=== PATIENT | male | born 1955 | race American Indian/Alaskan Native ===

== ENCOUNTER 2018-11-18 09:43 | Inpatient (IN) | payer MEDICARE, OTHER ==
[2018-11-18] MEDS ORDERED: NACL 0.9% 1000 ML 1,000 ML IV ONE ×6 (10:49→15:15)
[2018-11-18] MEDS ORDERED: ZOFRAN IV ONE (10:49)
[2018-11-18] MEDS ORDERED: HumuLIN R IV ONE (10:49)
[2018-11-18 11:33] LABS: Basophils % (Auto) 0.3 % (0.0-1.8); Eosinophils % (Auto) 0.2 % (0.0-4.3); Hematocrit 50.2 % (35.5-45.6); Hemoglobin 16.4 gm/dl (11.8-15.2); Lymphocytes # (Auto) 0.9 K/mm3 (1.2-5.4); Lymphocytes % (Auto) 14.6 % (13.4-35.0); Mean Corpuscular HGB Conc 33 % (32-34); Mean Corpuscular Volume 100 fl (84-94); Monocytes # (Auto) 0.2 K/mm3 (0.0-0.8); Monocytes % (Auto) 3.6 % (0.0-7.3); Platelet Count 317 K/mm3 (140-440); Red Cell Distribution Width 14.3 % (13.2-15.2)
[2018-11-18 11:53] LABS: Creatine Kinase MB 2.7 ng/mL (0.0-4.0)
[2018-11-18 11:55] LABS: Alanine Aminotransferase 10 units/L (7-56); Albumin 4.1 g/dL (3.9-5); BUN/Creatinine Ratio 38; Blood Urea Nitrogen 76 mg/dL (9-20); Calcium 10.4 mg/dL (8.4-10.2); Hemolysis Index 2
[2018-11-18] MEDS ORDERED: D50W (25GM) Syringe IV PRN ×2 (12:11→17:46)
[2018-11-18] MEDS ORDERED: PROVENTIL IH ONE (12:12)
--- NOTE | 2018-11-18 12:22 | Emergency Department Report ---
- General Chief complaint: Hyperglycemia Stated complaint: HYPERGLYCEMIA/WEAKNESS Time Seen by Provider: 11/18/18 10:19 Source: EMS Mode of arrival: Stretcher Limitations: No Limitations - History of Present Illness Initial comments: 63-year-old male with a past medical history of diabetes on insulin, hypertension, and hyperlipidemia presents to the hospital with complaints of na usea and decreased appetite for the last 2 weeks. Patient had one episode of vomiting with attempted by mouth intake. Glucose has been running high at home the last 2 weeks. He only took his insulin one time this week. He has did not think that he needs to take insulin because he was not eating even though his sugar repeatedly ran high. Patient complains of generalized weakness and fatigue with increased urinary frequency. He denies current nausea vomiting, diarrhea, area, or fever. PMD: Smith - Related Data Home Medications Medication Instructions Recorded Confirmed Last Taken amLODIPine [Norvasc] 10 mg PO DAILY 08/10/15 11/18/18 11/15/18 AtorvaSTATin [Lipitor] 40 mg PO QHS 11/18/18 11/18/18 11/15/18 Carvedilol [Coreg] 25 mg PO BID 11/18/18 11/18/18 11/15/18 Gabapentin [Neurontin] 300 mg PO BID 11/18/18 11/18/18 11/15/18 Insulin NPH Human Isophane See Protocol RI Q 11/18/18 11/18/18 11/11/18 [HumuLIN N] Insulin Regular, Human [HumuLIN R] See Protocol SC 11/18/18 11/18/18 11/11/18 Lisinopril [Zestril TAB] 40 mg PO QDAY 11/18/18 11/18/18 11/15/18 Allergies Allergy/AdvReac Type Severity Reaction Status Date / Time No Known Allergies Allergy Verified 08/09/15 13:13 ED Review of Systems ROS: Stated complaint: HYPERGLYCEMIA/WEAKNESS Other details as noted in HPI Comment: All other systems reviewed and negative ED Past Medical Hx - Past Medical History Previous Medical History?: Yes Hx Hypertension: Yes Hx Diabetes: Yes Additional medical history: hyperlipidemia - Surgical History Past Surgical History?: No - Social History Smoking Status: Former Smoker Substance Use Type: None - Medications Home Medications: Home Medications Medication Instructions Recorded Confirmed Last Taken Type amLODIPine [Norvasc] 10 mg PO DAILY 08/10/15 11/18/18 11/15/18 History AtorvaSTATin [Lipitor] 40 mg PO QHS 11/18/18 11/18/18 11/15/18 History Carvedilol [Coreg] 25 mg PO BID 11/18/18 11/18/18 11/15/18 History Gabapentin [Neurontin] 300 mg PO BID 11/18/18 11/18/18 11/15/18 History Insulin NPH Human Isophane See Protocol RI Q 11/18/18 11/18/18 11/11/18 History [HumuLIN N] Insulin Regular, Human [HumuLIN R] See Protocol [facility] 11/18/18 11/18/18 11/11/18 History Lisinopril [Zestril TAB] 40 mg PO QDAY 11/18/18 11/18/18 11/15/18 History ED Physical Exam - General Limitations: No Limitations ED Course Vital Signs 11/18/18 11/18/18 11/18/18 07:17 07:30 07:46 Temperature Pulse Rate 82 79 82 Pulse Rate [ Anterior Bilateral Throughout] Respiratory 15 13 16 Rate Respiratory Rate [Anterior Bilateral Throughout] Blood Pressure 101/62 101/62 101/62 Blood Pressure [Left] O2 Sat by Pulse 99 99 100 Oximetry 11/18/18 11/18/18 11/18/18 08:00 08:16 08:30 Temperature Pulse Rate 74 76 80 Pulse Rate [ Anterior Bilateral Throughout] Respiratory 16 14 14 Rate Respiratory Rate [Anterior Bilateral Throughout] Blood Pressure 101/62 101/62 101/62 Blood Pressure [Left] O2 Sat by Pulse 99 100 100 Oximetry 11/18/18 11/18/18 11/18/18 08:46 10:01 10:14 Temperature 99.1 F Pulse Rate 84 110 H Pulse Rate [ Anterior Bilateral Throughout] Respiratory 16 16 Rate Respiratory Rate [Anterior Bilateral Throughout] Blood Pressure 101/62 128/75 128/84 Blood Pressure [Left] O2 Sat by Pulse 100 98 Oximetry 11/18/18 11/18/18 11/18/18 11:00 11:01 11:16 Temperature Pulse Rate 84 84 Pulse Rate [ Anterior Bilateral Throughout] Respiratory 16 14 Rate Respiratory Rate [Anterior Bilateral Throughout] Blood Pressure 142/77 128/84 Blood Pressure 142/77 [Left] O2 Sat by Pulse 100 Oximetry 11/18/18 11/18/1811/18/19 11:30 11:46 12:00 Temperature Pulse Rate 91 H 99 H 90 Pulse Rate [ Anterior Bilateral Throughout] Respiratory 10 L 20 10 L Rate Respiratory Rate [Anterior Bilateral Throughout] Blood Pressure 142/77 142/77 137/72 Blood Pressure [Left] O2 Sat by Pulse 96 83 L Oximetry 11/18/18 11/18/18 11/18/18 12:01 12:16 12:26 Temperature Pulse Rate 84 88 Pulse Rate [ 85 Anterior Bilateral Throughout] Respiratory 16 13 Rate Respiratory 12 Rate [Anterior Bilateral Throughout] Blood Pressure 137/72 Blood Pressure 137/72 [Left] O2 Sat by Pulse 100 99 Oximetry 11/18/18 11/18/18 11/18/18 12:30 12:46 13:00 Temperature Pulse Rate 86 81 89 Pulse Rate [ Anterior Bilateral Throughout] Respiratory 10 L 11 L 15 Rate Respiratory Rate [Anterior Bilateral Throughout] Blood Pressure 137/72 137/72 117/65 Blood Pressure [Left] O2 Sat by Pulse 98 97 Oximetry 11/18/18 13:08 Temperature Pulse Rate Pulse Rate [ 89 Anterior Bilateral Throughout] Respiratory Rate Respiratory 12 Rate [Anterior Bilateral Throughout] Blood Pressure Blood Pressure [Left] O2 Sat by Pulse Oximetry - Consultations Consultation #1: 11/18/18 12:48 case d/w Luis Mata, Approves admission here at [facility] Consultation #2: 11/18/18 12:48 case d/w DR Bryson hartmann, will consult ED Medical Decision Making - Lab Data Result diagrams: 11/18/18 11:03 11/18/18 18:29 Lab Results 11/18/18 11/18/18 11/18/18 Range/Units 11:01 11:03 11:03 WBC 5.9 (4.5-11.0) K/mm3 RBC 5.00 (3.65-5.03) M/mm3 Hgb 16.4 H (11.8-15.2) gm/dl Hct 50.2 H (35.5-45.6) % MCV 100 H (84-94) fl MCH 33 H (28-32) pg MCHC 33 (32-34) % RDW 14.3 (13.2-15.2) % Plt Count 317 (140-440) K/mm3 Lymph % (Auto) 14.6 (13.4-35.0) % Cotton % (Auto) 3.6 (0.0-7.3) % Eos % (Auto) 0.2 (0.0-4.3) % Baso % (Auto) 0.3 (0.0-1.8) % Lymph # 0.9 L (1.2-5.4) K/mm3 Cotton # 0.2 (0.0-0.8) K/mm3 Eos # 0.0 (0.0-0.4) K/mm3 Baso # 0.0 (0.0-0.1) K/mm3 Seg Neutrophils % 81.3 H (40.0-70.0) % Seg Neutrophils # 4.8 (1.8-7.7) K/mm3 VBG pH (7.320-7.420) Sodium 126 L (137-145) mmol/L Potassium 7.3 H* (3.6-5.0) mmol/L Chloride 79.4 L (98-107) mmol/L Carbon Dioxide 18 L (22-30) mmol/L Anion Gap 36 mmol/L BUN 76 H (9-20) mg/dL Creatinine 2.0 H (0.8-1.5) mg/dL Estimated GFR 41 ml/min BUN/Creatinine Ratio 38 % Glucose 718 H* (75-100) mg/dL POC Glucose 495 H (70-105) Calcium 10.4 H (8.4-10.2) mg/dL Phosphorus (2.5-4.5) mg/dL Magnesium (1.7-2.3) mg/dL Total Bilirubin 0.60 (0.1-1.2) mg/dL AST 16 (5-40) units/L ALT 10 (7-56) units/L Alkaline Phosphatase 202 H (35-129) units/L Total Creatine Kinase 170 (55-170) units/L CK-MB (CK-2) 2.7 (0.0-4.0) ng/mL CK-MB (CK-2) Rel Index 1.5 (0-4) Troponin T < 0.010 (0.00-0.029) ng/mL Total Protein 7.7 (6.3-8.2) g/dL Albumin 4.1 (3.9-5) g/dL Albumin/Globulin Ratio 1.1 % Lipase (13-60) units/L Urine Color (Yellow) Urine Turbidity (Clear) Urine pH (5.0-7.0) Ur Specific Sandwich (1.003-1.030) Urine Protein (Negative) mg/dL Urine Glucose (UA) (Negative) mg/dL Urine Ketones (Negative) mg/dL Urine Blood (Negative) Urine Nitrite (Negative) Urine Bilirubin (Negative) Urine Urobilinogen (<2.0) mg/dL Ur Leukocyte Esterase (Negative) Urine WBC (Auto) (0.0-6.0) /HPF Urine RBC (Auto) (0.0-6.0) /HPF U Epithel Cells (Auto) (0-13.0) /HPF Urine Sodium mmol/L Urine Potassium mmol/L 11/18/18 11/18/18 11/18/18 Range/Units 11:03 11:03 11:03 WBC (4.5-11.0) K/mm3 RBC (3.65-5.03) M/mm3 Hgb (11.8-15.2) gm/dl Hct (35.5-45.6) % MCV (84-94) fl MCH (28-32) pg MCHC (32-34) % RDW (13.2-15.2) % Plt Count (140-440) K/mm3 Lymph % (Auto) (13.4-35.0) % Cotton % (Auto) (0.0-7.3) % Eos % (Auto) (0.0-4.3) % Baso % (Auto) (0.0-1.8) % Lymph # (1.2-5.4) K/mm3 Cotton # (0.0-0.8) K/mm3 Eos # (0.0-0.4) K/mm3 Baso # (0.0-0.1) K/mm3 Seg Neutrophils % (40.0-70.0) % Seg Neutrophils # (1.8-7.7) K/mm3 VBG pH 7.229 L (7.320-7.420) Sodium (137-145) mmol/L Potassium (3.6-5.0) mmol/L Chloride (98-107) mmol/L Carbon Dioxide (22-30) mmol/L Anion Gap mmol/L BUN (9-20) mg/dL Creatinine (0.8-1.5) mg/dL Estimated GFR ml/min BUN/Creatinine Ratio % Glucose (75-100) mg/dL POC Glucose (70-105) Calcium (8.4-10.2) mg/dL Phosphorus 6.70 H (2.5-4.5) mg/dL Magnesium 3.20 H (1.7-2.3) mg/dL Total Bilirubin (0.1-1.2) mg/dL AST (5-40) units/L ALT (7-56) units/L Alkaline Phosphatase (35-129) units/L Total Creatine Kinase (55-170) units/L CK-MB (CK-2) (0.0-4.0) ng/mL CK-MB (CK-2) Rel Index (0-4) Troponin T (0.00-0.029) ng/mL Total Protein (6.3-8.2) g/dL Albumin (3.9-5) g/dL Albumin/Globulin Ratio % Lipase 38 (13-60) units/L Urine Color (Yellow) Urine Turbidity (Clear) Urine pH (5.0-7.0) Ur Specific Sandwich (1.003-1.030) Urine Protein (Negative) mg/dL Urine Glucose (UA) (Negative) mg/dL Urine Ketones (Negative) mg/dL Urine Blood (Negative) Urine Nitrite (Negative) Urine Bilirubin (Negative) Urine Urobilinogen (<2.0) mg/dL Ur Leukocyte Esterase (Negative) Urine WBC (Auto) (0.0-6.0) /HPF Urine RBC (Auto) (0.0-6.0) /HPF U Epithel Cells (Auto) (0-13.0) /HPF Urine Sodium mmol/L Urine Potassium mmol/L 11/18/18 11/18/18 Range/Units 11:59 Unknown WBC (4.5-11.0) K/mm3 RBC (3.65-5.03) M/mm3 Hgb (11.8-15.2) gm/dl Hct (35.5-45.6) % MCV (84-94) fl MCH (28-32) pg MCHC (32-34) % RDW (13.2-15.2) % Plt Count (140-440) K/mm3 Lymph % (Auto) (13.4-35.0) % Cotton % (Auto) (0.0-7.3) % Eos % (Auto) (0.0-4.3) % Baso % (Auto) (0.0-1.8) % Lymph # (1.2-5.4) K/mm3 Cotton # (0.0-0.8) K/mm3 Eos # (0.0-0.4) K/mm3 Baso # (0.0-0.1) K/mm3 Seg Neutrophils % (40.0-70.0) % Seg Neutrophils # (1.8-7.7) K/mm3 VBG pH (7.320-7.420) Sodium (137-145) mmol/L Potassium (3.6-5.0) mmol/L Chloride (98-107) mmol/L Carbon Dioxide (22-30) mmol/L Anion Gap mmol/L BUN (9-20) mg/dL Creatinine (0.8-1.5) mg/dL Estimated GFR ml/min BUN/Creatinine Ratio % Glucose (75-100) mg/dL POC Glucose (70-105) Calcium (8.4-10.2) mg/dL Phosphorus (2.5-4.5) mg/dL Magnesium (1.7-2.3) mg/dL Total Bilirubin (0.1-1.2) mg/dL AST (5-40) units/L ALT (7-56) units/L Alkaline Phosphatase (35-129) units/L Total Creatine Kinase (55-170) units/L CK-MB (CK-2) (0.0-4.0) ng/mL CK-MB (CK-2) Rel Index (0-4) Troponin T (0.00-0.029) ng/mL Total Protein (6.3-8.2) g/dL Albumin (3.9-5) g/dL Albumin/Globulin Ratio % Lipase (13-60) units/L Urine Color Straw (Yellow) Urine Turbidity Clear (Clear) Urine pH 6.0 (5.0-7.0) Ur Specific Sandwich 1.018 (1.003-1.030) Urine Protein <15 mg/dl (Negative) mg/dL Urine Glucose (UA) >=500 (Negative) mg/dL Urine Ketones 20 (Negative) mg/dL Urine Blood Sm (Negative) Urine Nitrite Neg (Negative) Urine Bilirubin Neg (Negative) Urine Urobilinogen < 2.0 (<2.0) mg/dL Ur Leukocyte Esterase Neg (Negative) Urine WBC (Auto) 1.0 (0.0-6.0) /HPF Urine RBC (Auto) 1.0 (0.0-6.0) /HPF U Epithel Cells (Auto) < 1.0 (0-13.0) /HPF Urine Sodium 31 mmol/L Urine Potassium 35.69 mmol/L - EKG Data -: EKG Interpreted by Me EKG shows normal: sinus rhythm, axis (qrs -80), QRS complexes (qrsd 91), ST-T waves (no stemi/ t inv) Rate: normal (91) - EKG Data When compared to previous EKG there are: no significant change - Differential Diagnosis DKA, sepsis, infection, uti, dehydration Critical Care Time: Yes Critical care time in (mins) excluding proc time.: 35 Critical care attestation.: If time is entered above; I have spent that time in minutes in the direct care of this critically ill patient, excluding procedure time. ED Disposition Clinical Impression: DKA (diabetic ketoacidoses), Acute renal failure, Hyperkalemia Disposition: DC-09 OP ADMIT IP TO THIS HOSP Is pt being admited?: Yes Condition: Stable Time of Disposition: 12:22 (DR SANTILLAN/HOSP)
[2018-11-18 12:24] LABS: Bilirubin,Urine NEG (Negative); Blood,Urine SM (Negative); Color,Urine Straw (Yellow); Protein,Urine <15 mg/dL mg/dL (Negative); Urobilinogen,Urine < 2.0 mg/dL (<2.0)
[2018-11-18] MEDS ORDERED: HumuLIN R 100 UNITS in NACL 0.9% 99 ML IV SCH ×2 (13:00→18:00)
[2018-11-18] MEDS: NACL 0.9% 1000 ML 1,000 ML IV SCH ×2 (14:00→14:32)
[2018-11-18 15:24] LABS: Calcium 9.4 mg/dL (8.4-10.2)
--- NOTE | 2018-11-18 15:28 | Consultation ---
History of Present Illness - Reason for Consult Consult date: 11/18/18 Hyperglycemia, electrolyte imbalance Requesting physician: LOUISE SANTILLAN - History of Present Illness 63 y/o male with known diabetes, poor historian admitted as DKA. Found to be hyponatremic, hypochloremic and in presumed acute renal failure. at bedside who provides a list of medications that include 2 short acting insulins but no long acting medications. patient also takes nasim inhibitor and statin and Neurontin. Past History Past Medical History: diabetes, hypertension, hyperlipidemia Social history: Family history: no significant family history Medications and Allergies Allergies Allergy/AdvReac Type Severity Reaction Status Date / Time No Known Allergies Allergy Verified 08/09/15 13:13 Home Medications Medication Instructions Recorded Confirmed Last Taken Type Insulin Detemir [Levemir Flextouch] 15 units SUB-Q BID 08/10/15 08/10/15 08/09/15 09:00 History Lisinopril/Hydrochlorothiazide 2 tab PO QDAY 08/10/15 08/10/15 08/09/15 09:00 History [Zestoretic 20-12.5 mg] Potassium Chloride [K-Dur] 2 tab PO DAILY 08/10/15 08/10/15 08/09/15 09:00 History amLODIPine [Norvasc] 10 mg PO DAILY 08/10/15 08/10/15 08/09/15 09:00 History oxyCODONE /ACETAMINOPHEN [Percocet 1 tab PO Q6HR PRN #24 tablet 08/11/15 Unknown Rx 5/325] Active Meds: Active Medications Dextrose (D50w (25gm) Syringe) 0 ml IV PRN PRN PRN Reason: Hypoglycemia Insulin Human Regular 100 (units/ Sodium Chloride) 100 mls @ 1 mls/hr IV TITR JAVON; Protocol Last Titration: 11/18/18 15:09 Dose: 8 units/hr, 8 mls/hr Documented by: Sodium Chloride (Nacl 0.9% 1000 Ml) 1,000 mls @ 125 mls/hr IV DIRECT JAVON Last Admin: 11/18/18 14:00 Dose: 125 mls/hr Documented by: Sodium Chloride (Nacl 0.9% 1000 Ml) 1,000 mls @ 999 mls/hr IV BOLUS ONE Stop: 11/18/18 16:15 Sodium Chloride (Nacl 0.9% 1000 Ml) 1,000 mls @ 999 mls/hr IV BOLUS ONE Stop: 11/18/18 16:15 Sodium Chloride (Nacl 0.9% 1000 Ml) 1,000 mls @ 999 mls/hr IV BOLUS ONE Stop: 11/18/18 16:15 Review of Systems All systems: negative Exam - Constitutional Vitals: Temp Pulse Resp BP Pulse Ox 99.1 F 99 H 16 110/62 97 11/18/18 10:01 11/18/18 14:00 11/18/18 14:00 11/18/18 14:00 11/18/18 14:00 General appearance: Present: no acute distress, disheveled, other (appears older than stated age) - EENT Eyes: Present: PERRL ENT: hearing intact, clear oral mucosa, poor dentition, edentulous, other (Gums are in poor condition) - Neck Neck: Present: supple - Respiratory Respiratory effort: normal Respiratory: bilateral: CTA - Cardiovascular Rhythm: regular (sinus tach) Heart Sounds: Present: S1 & S2 - Abdominal General gastrointestinal: Present: soft, non-tender, normal bowel sounds Male genitourinary: Present: deferred - Rectal Rectal Exam: deferred Results - Labs CBC & Chem 7: 11/18/18 11:03 11/18/18 11:03 Labs: Abnormal lab results 11/18/18 11/18/18 11/18/18 Range/Units 11:01 11:03 11:03 Hgb 16.4 H (11.8-15.2) gm/dl Hct 50.2 H (35.5-45.6) % MCV 100 H (84-94) fl MCH 33 H (28-32) pg Lymph # 0.9 L (1.2-5.4) K/mm3 Seg Neutrophils % 81.3 H (40.0-70.0) % VBG pH (7.320-7.420) Sodium 126 L (137-145) mmol/L Potassium 7.3 H* (3.6-5.0) mmol/L Chloride 79.4 L (98-107) mmol/L Carbon Dioxide 18 L (22-30) mmol/L BUN 76 H (9-20) mg/dL Creatinine 2.0 H (0.8-1.5) mg/dL Glucose 718 H* (75-100) mg/dL POC Glucose 495 H (70-105) Calcium 10.4 H (8.4-10.2) mg/dL Phosphorus (2.5-4.5) mg/dL Magnesium (1.7-2.3) mg/dL Alkaline Phosphatase 202 H (35-129) units/L 11/18/18 11/18/18 11/18/18 Range/Units 11:03 11:03 12:57 Hgb (11.8-15.2) gm/dl Hct (35.5-45.6) % MCV (84-94) fl MCH (28-32) pg Lymph # (1.2-5.4) K/mm3 Seg Neutrophils % (40.0-70.0) % VBG pH 7.229 L (7.320-7.420) Sodium (137-145) mmol/L Potassium (3.6-5.0) mmol/L Chloride (98-107) mmol/L Carbon Dioxide (22-30) mmol/L BUN (9-20) mg/dL Creatinine (0.8-1.5) mg/dL Glucose (75-100) mg/dL POC Glucose 469 H (70-105) Calcium (8.4-10.2) mg/dL Phosphorus 6.70 H (2.5-4.5) mg/dL Magnesium 3.20 H (1.7-2.3) mg/dL Alkaline Phosphatase (35-129) units/L 11/18/18 Range/Units 14:03 Hgb (11.8-15.2) gm/dl Hct (35.5-45.6) % MCV (84-94) fl MCH (28-32) pg Lymph # (1.2-5.4) K/mm3 Seg Neutrophils % (40.0-70.0) % VBG pH (7.320-7.420) Sodium (137-145) mmol/L Potassium (3.6-5.0) mmol/L Chloride (98-107) mmol/L Carbon Dioxide (22-30) mmol/L BUN (9-20) mg/dL Creatinine (0.8-1.5) mg/dL Glucose (75-100) mg/dL POC Glucose 462 H (70-105) Calcium (8.4-10.2) mg/dL Phosphorus (2.5-4.5) mg/dL Magnesium (1.7-2.3) mg/dL Alkaline Phosphatase (35-129) units/L Assessment and Plan 63 y/o male with hyperglycemia, presumed acute renal failure, electrolyte imbalance and malnutriton with likely gingivitis. 1. Will bolus 3 more liters of normal saline. Patient appears to be suffering from hypovolemic hyponatremia along with hypochloremia. 2. q6hour BMP's 3. Q1 hour fingersticks. 4. Continue normal saline maintenance until sugar drops below 250 then change to D5, may need k pending chemistry results 5. Suspect that insulin drip will be turned off quickly once rehydrated 6. Metabolic acidosis is likely multifactorial given renal failure and elevated blood sugar 7. Presumed acute renal failure, if patient does not improve with volume repletion will need renal consult 8. Hold BP meds 9. Hold statin for now 10. Needs outpatient dental follow up 11. Needs nutrition consult for help with dietary needs and management. CCT 31 minutes.
--- NOTE | 2018-11-18 16:14 | Event Note ---
12:45 PM I was called about her renal consultation on the patient being admitted with acute renal failure hyperkalemia and Diabetic ketoacidosis Treatment has been initiated Case discussed with emergency room physician, patient being admitted with, hyperkalemia Patient is already being treated with IV fluid, IV insulin Will need follow up on the potassium level patient was taking lisinopril hydrochlorothiazide in the outpatient setting Discussed with emergency room physician about the treatment plan Patient is being placed on DKA protocol Follow up on the potassium level likely should improve with treatment of ketoacidosis
--- NOTE | 2018-11-18 17:42 | History and Physical Report ---
History of Present Illness Date of examination: 11/18/18 Date of admission: 11/18/18 12:22 Chief complaint: Feeling weak and tired for 2 weeks N/v x 1 day History of present illness: 63-year-old male with a past medical history of diabetes on insulin, hypertension, and hyperlipidemia presents to the hospital with complaints of nausea and decreased appetite for the last 2 weeks. Patient had one episode of vomiting today. Glucose has been running high at home the last 2 weeks. He only took his insulin one time this week. He has did not think that he nee ds to take insulin because he was not eating even though his sugar repeatedly ran high. Patient complains of generalized weakness and fatigue with increased urinary frequency. He denies current nausea vomiting, diarrhea, area, or fever. PMD: Patient goes to [facility] for his medical needs Past Medical History Previous Medical History?: Yes Hypertension: Yes Diabetes: Yes Additional medical history: hyperlipidemia Surgical History Past Surgical History?: No Social History Smoking Status: Former Smoker Substance Use Type: None Medications Home Medications: Home Medications Medication Instructions Recorded Confirmed Last Taken Type Insulin Detemir [Levemir Flextouch] 15 units SUB-Q BID 08/10/15 08/10/15 08/09/15 09:00 History Lisinopril/Hydrochlorothiazide 2 tab PO QDAY 08/10/15 08/10/15 08/09/15 09:00 History [Zestoretic 20-12.5 mg] Potassium Chloride [K-Dur] 2 tab PO DAILY 08/10/15 08/10/15 08/09/15 09:00 History amLODIPine [Norvasc] 10 mg PO DAILY 08/10/15 08/10/15 08/09/15 09:00 History oxyCODONE /ACETAMINOPHEN [Percocet 1 tab PO Q6HR PRN #24 tablet 08/11/15 Unknown Rx 5/325] Review of systems Stated complaint: HYPERGLYCEMIA/WEAKNESS Other details as noted in HPI Comment: All other systems reviewed and negative Past History Past Medical History: diabetes, hypertension, hyperlipidemia Social history: Family history: no significant family history Medications and Allergies Allergies Allergy/AdvReac Type Severity Reaction Status Date / Time No Known Allergies Allergy Verified 08/09/15 13:13 Home Medications Medication Instructions Recorded Confirmed Last Taken Type amLODIPine [Norvasc] 10 mg PO DAILY 08/10/15 11/18/18 11/15/18 History AtorvaSTATin [Lipitor] 40 mg PO QHS 11/18/18 11/18/18 11/15/18 History Carvedilol [Coreg] 25 mg PO BID 11/18/18 11/18/18 11/15/18 History Gabapentin [Neurontin] 300 mg PO BID 11/18/18 11/18/18 11/15/18 History Insulin NPH Human Isophane See Protocol ID QHS 11/18/18 11/18/18 11/11/18 History [HumuLIN N] Insulin Regular, Human [HumuLIN R] See Protocol ID AC 11/18/18 11/18/18 11/11/18 History Lisinopril [Zestril TAB] 40 mg PO QDAY 11/18/18 11/18/18 11/15/18 History Active Meds: Active Medications Dextrose (D50w (25gm) Syringe) 0 ml IV PRN PRN PRN Reason: Hypoglycemia Insulin Human Regular 100 (units/ Sodium Chloride) 100 mls @ 1 mls/hr IV TITR JAVON; Protocol Last Titration: 11/18/18 17:07 Dose: 5 units/hr, 5 mls/hr Documented by: Sodium Chloride (Nacl 0.9% 1000 Ml) 1,000 mls @ 125 mls/hr IV DIRECT JAVON Last Admin: 11/18/18 14:00 Dose: 125 mls/hr Documented by: Exam - Constitutional Vitals: Temp Pulse Resp BP Pulse Ox 99.1 F 88 18 118/62 95 11/18/18 10:01 11/18/18 16:00 11/18/18 16:00 11/18/18 16:00 11/18/18 16:00 General appearance: Present: mild distress, well-nourished - EENT Eyes: Present: PERRL ENT: hearing intact, clear oral mucosa - Neck Neck: Present: supple, normal ROM - Respiratory Respiratory effort: normal Respiratory: bilateral: CTA - Cardiovascular Heart rate: 98 Rhythm: regular Heart Sounds: Present: S1 & S2. Absent: rub, click - Extremities Extremities: no ischemia, pulses intact, pulses symmetrical, No edema Peripheral Pulses: within normal limits - Abdominal General gastrointestinal: Present: soft, non-tender, non-distended, normal bowel sounds Male genitourinary: Present: normal - Integumentary Integumentary: Present: clear, warm, dry - Musculoskeletal Musculoskeletal: gait normal, strength equal bilaterally - Psychiatric Psychiatric: appropriate mood/affect, intact judgment & insight - Neurologic Neurologic: CNII-XII intact, moves all extremities - Allied Health Allied health notes reviewed: nursing, case management Results - Labs CBC & Chem 7: 11/18/18 11:03 11/19/18 04:52 Labs: Laboratory Last Values WBC 5.9 K/mm3 (4.5-11.0) 11/18/18 11:03 RBC 5.00 M/mm3 (3.65-5.03) 11/18/18 11:03 Hgb 16.4 gm/dl (11.8-15.2) H 11/18/18 11:03 Hct 50.2 % (35.5-45.6) H 11/18/18 11:03 MCV 100 fl (84-94) H 11/18/18 11:03 MCH 33 pg (28-32) H 11/18/18 11:03 MCHC 33 % (32-34) 11/18/18 11:03 RDW 14.3 % (13.2-15.2) 11/18/18 11:03 Plt Count 317 K/mm3 (140-440) 11/18/18 11:03 Lymph % (Auto) 14.6 % (13.4-35.0) 11/18/18 11:03 [place] % (Auto) 3.6 % (0.0-7.3) 11/18/18 11:03 Eos % (Auto) 0.2 % (0.0-4.3) 11/18/18 11:03 Baso % (Auto) 0.3 % (0.0-1.8) 11/18/18 11:03 Lymph # 0.9 K/mm3 (1.2-5.4) L 11/18/18 11:03 [place] # 0.2 K/mm3 (0.0-0.8) 11/18/18 11:03 Eos # 0.0 K/mm3 (0.0-0.4) 11/18/18 11:03 Baso # 0.0 K/mm3 (0.0-0.1) 11/18/18 11:03 Seg Neutrophils % 81.3 % (40.0-70.0) H 11/18/18 11:03 Seg Neutrophils # 4.8 K/mm3 (1.8-7.7) 11/18/18 11:03 VBG pH 7.229 (7.320-7.420) L 11/18/18 11:03 Sodium 136 mmol/L (137-145) L D 11/18/18 14:10 Potassium 5.4 mmol/L (3.6-5.0) H D 11/18/18 14:10 Chloride 93.0 mmol/L (98-107) L 11/18/18 14:10 Carbon Dioxide 16 mmol/L (22-30) L 11/18/18 14:10 32 mmol/L 11/18/18 14:10 BUN 69 mg/dL (9-20) H 11/18/18 14:10 1.8 mg/dL (0.8-1.5) H 11/18/18 14:10 Estimated GFR 46 ml/min 11/18/18 14:10 38 % 11/18/18 14:10 Glucose 463 mg/dL (75-100) H 11/18/18 14:10 POC Glucose 462 (70-105) H 11/18/18 14:03 Calcium 9.4 mg/dL (8.4-10.2) 11/18/18 14:10 Phosphorus 6.70 mg/dL (2.5-4.5) H 11/18/18 11:03 Magnesium 3.20 mg/dL (1.7-2.3) H 11/18/18 11:03 0.60 mg/dL (0.1-1.2) 11/18/18 11:03 AST 16 units/L (5-40) 11/18/18 11:03 ALT 10 units/L (7-56) 11/18/18 11:03 202 units/L (35-129) H 11/18/18 11:03 170 units/L (55-170) 11/18/18 11:03 CK-MB (CK-2) 2.7 ng/mL (0.0-4.0) 11/18/18 11:03 CK-MB (CK-2) Rel Index 1.5 (0-4) 11/18/18 11:03 < 0.010 ng/mL (0.00-0.029) 11/18/18 11:03 7.7 g/dL (6.3-8.2) 11/18/18 11:03 4.1 g/dL (3.9-5) 11/18/18 11:03 1.1 % 11/18/18 11:03 38 units/L (13-60) 11/18/18 11:03 Straw (Yellow) 11/18/18 11:59 Clear (Clear) 11/18/18 11:59 6.0 (5.0-7.0) 11/18/18 11:59 Ur Specific [place] 1.018 (1.003-1.030) 11/18/18 11:59 <15 mg/dl mg/dL (Negative) 11/18/18 11:59 >=500 mg/dL (Negative) 11/18/18 11:59 20 mg/dL (Negative) 11/18/18 11:59 Sm (Negative) 11/18/18 11:59 Neg (Negative) 11/18/18 11:59 Neg (Negative) 11/18/18 11:59 < 2.0 mg/dL (<2.0) 11/18/18 11:59 Ur Leukocyte Esterase Neg (Negative) 11/18/18 11:59 1.0 /HPF (0.0-6.0) 11/18/18 11:59 1.0 /HPF (0.0-6.0) 11/18/18 11:59 U Epithel Cells (Auto) < 1.0 /HPF (0-13.0) 11/18/18 11:59 31 mmol/L 11/18/18 Unknown 35.69 mmol/L 11/18/18 Unknown Short CBC 11/18/18 Range/Units 11:03 WBC 5.9 (4.5-11.0) K/mm3 Hgb 16.4 H (11.8-15.2) gm/dl Hct 50.2 H (35.5-45.6) % Plt Count 317 (140-440) K/mm3 BMP 11/18/18 11/18/18 11/18/18 11:03 14:10 18:29 Sodium 126 L 136 L D 142 Potassium 7.3 H* 5.4 H D 5.4 H Chloride 79.4 L 93.0 L 105.7 Carbon Dioxide 18 L 16 L 21 L BUN 76 H 69 H 57 H Creatinine 2.0 H 1.8 H 1.5 Glucose 718 H* 463 H 154 H Calcium 10.4 H 9.4 9.1 11/19/18 11/19/18 00:09 04:52 Sodium 135 L Potassium 4.5 4.5 Chloride 104.1 107.5 H Carbon Dioxide 21 L 22 BUN 47 H 43 H Creatinine 1.1 1.1 Glucose 156 H 100 Calcium 8.5 8.2 L Cardiac Enzymes 11/18/18 Range/Units 11:03 Total Creatine Kinase 170 (55-170) units/L CK-MB (CK-2) 2.7 (0.0-4.0) ng/mL Troponin T < 0.010 (0.00-0.029) ng/mL Liver Function 11/18/18 11/19/18 Range/Units 11:03 04:52 Total Bilirubin 0.60 0.30 (0.1-1.2) mg/dL AST 16 20 (5-40) units/L ALT 10 8 (7-56) units/L Alkaline Phosphatase 202 H 110 (35-129) units/L Albumin 4.1 2.7 L (3.9-5) g/dL Urine 11/18/18 Range/Units 11:59 Urine Color Straw (Yellow) Urine pH 6.0 (5.0-7.0) Ur Specific [place] 1.018 (1.003-1.030) Urine Protein <15 mg/dl (Negative) mg/dL Urine Glucose (UA) >=500 (Negative) mg/dL - Imaging and Cardiology EKG: report reviewed (NSR,LAFB 91/min) Assessment and Plan Assessment and plan: Critical care time 40 minutes Advance Directives: Yes (Full code) VTE prophylaxis?: Chemical Plan of care discussed with patient/family: Yes - Patient Problems (1) DKA (diabetic ketoacidoses) Current Visit: Yes Status: Acute Qualifiers: Diabetes mellitus type: type 2 Diabetes mellitus complication detail: without coma Qualified Code(s): E11.10 - Type 2 diabetes mellitus with ketoacidosis without coma Plan to address problem: DKA protocol initiated IV insulin drip and IV fluids Admit to ICU Needs to be on Basal bolus regimen or 70/30 Insulin BiD on regular basis (2) Hyperkalemia Current Visit: Yes Status: Acute Plan to address problem: Should improve with IVinsulin (3) Hyponatremia Current Visit: Yes Status: Acute Plan to address problem: Sec to High BG levels Should improve with improvement in Glucose levels (4) LORIE (acute kidney injury) Current Visit: Yes Status: Acute Plan to address problem: Sec to ATN IV Fluids for now (5) HTN (hypertension) Current Visit: Yes Status: Acute Plan to address problem: COnt antihypertensives (6) Malnutrition Current Visit: No Status: Chronic Qualifiers: Protein-calorie malnutrition severity: moderate Plan to address problem: Dietitian consult (7) HLD (hyperlipidemia) Current Visit: Yes Status: Chronic Qualifiers: Hyperlipidemia type: mixed hyperlipidemia Qualified Code(s): E78.2 - Mixed hyperlipidemia Plan to address problem: COnt statins (8) Peripheral neuropathy Current Visit: Yes Status: Acute Plan to address problem: Cont Gabapentin (9) DVT prophylaxis Current Visit: No Status: Acute Plan to address problem: On Lovenox and GI prophylaxis
[2018-11-18] MEDS ORDERED: TYLENOL PO PRN (17:44)
[2018-11-18] MEDS ORDERED: SODIUM CHLORIDE FLUSH SYRINGE 10 ML IV PRN (17:44)
[2018-11-18] MEDS ORDERED: REGLAN IV PRN (17:44)
[2018-11-18] MEDS ORDERED: ZOFRAN IV PRN (17:44)
[2018-11-18] MEDS ORDERED: MORPHINE IV PRN (17:44)
[2018-11-18] MEDS ORDERED: APRESOLINE IV PRN (17:51)
[2018-11-18] MEDS ORDERED: ZESTRIL PO SCH (18:00)
[2018-11-18] MEDS ORDERED: D5W/0.45% NACL/KCL 20 MEQ 20 MEQ/1,000 ML BAG IV SCH (18:00)
[2018-11-18] MEDS ORDERED: D5NS 1,000 ML IV SCH (19:00)
[2018-11-18 19:58] LABS: Calcium 9.1 mg/dL (8.4-10.2)
[2018-11-18] MEDS: NORVASC PO SCH (20:03)
[2018-11-18] MEDS: KCL 10MEQ/100ML 10 MEQ/100 ML BAG IV SCH ×2 (20:04)
[2018-11-18] MEDS: COREG PO SCH (22:15)
[2018-11-18] MEDS: PEPCID IV SCH (22:15)
[2018-11-18] MEDS: NEURONTIN PO SCH (22:15)
--- NOTE | 2018-11-19 00:26 | Event Note ---
chart reviewed patient's potassium was improving satisfactorily we'll order for stat BMP since patient is admitted for acute renal failure, recommend avoiding lisinopril Hence we will support. Also discontinue potassium and IV fluid for now It can be given if potassium is low Recommend discontinuing potassium if potassium is over 5
[2018-11-19 00:47] LABS: BUN/Creatinine Ratio 43; Blood Urea Nitrogen 47 mg/dL (9-20); Calcium 8.5 mg/dL (8.4-10.2); Hemolysis Index 2
[2018-11-19] MEDS ORDERED: D50W (25GM) Syringe IV PRN (02:39)
[2018-11-19] MEDS: KCL 10MEQ/100ML 10 MEQ/100 ML BAG IV SCH ×2 (05:30→07:15)
[2018-11-19 06:13] LABS: Alanine Aminotransferase 8 units/L (7-56); Albumin 2.7 g/dL (3.9-5); BUN/Creatinine Ratio 39; Blood Urea Nitrogen 43 mg/dL (9-20); Calcium 8.2 mg/dL (8.4-10.2); Hemolysis Index 3
[2018-11-19] MEDS: SODIUM CHLORIDE FLUSH SYRINGE 10 ML IV SCH ×3 (07:16→22:50)
--- NOTE | 2018-11-19 07:57 | Progress Note ---
Assessment and Plan 63-year-old male with a history of diabetes mellitus admitted to the emergency department for DKA have not been taken his insulin for the past 1 week because his things he shouldn't be taking any insulin since his appetite is low and is not eating very well. Hemoglobin A1c was over 12% on admission. Is on insulin drip and has improved - DKA (diabetic ketoacidoses) Continue with DKA protocol IV insulin drip and IV fluids - Hyperkalemia corrected Should improve with IVinsulin - Hyponatremia Sec to High BG levels improved - LORIE (acute kidney injury) Sec to ATN - resolving IV Fluids for now - HTN (hypertension) Cont antihypertensives - Malnutrition Dietitian consult - HLD (hyperlipidemia) COnt statins - Peripheral neuropathy Cont Gabapentin - DVT prophylaxis On Lovenox and GI prophylaxis with Pepcid Pt is full code CCT 35 mins Subjective Date of service: 11/19/18 Principal diagnosis: DKA, LORIE, Interval history: Pt seen and examined. alert and interactive. No Nausea or vomiting Objective - Constitutional Vitals: Vital Signs - 12hr 11/18/18 11/18/18 11/18/18 20:00 20:03 21:00 Pulse Rate 78 71 65 Respiratory 14 14 Rate Blood Pressure 129/72 129/72 132/69 O2 Sat by Pulse 97 97 Oximetry 11/18/18 11/18/18 11/18/18 22:00 22:15 23:00 Pulse Rate 67 74 65 Respiratory 17 19 Rate Blood Pressure 118/63 118/63 111/64 O2 Sat by Pulse 98 98 Oximetry 11/18/18 11/19/18 11/19/18 23:12 00:00 01:00 Pulse Rate 64 59 L 57 L Respiratory 16 15 17 Rate Blood Pressure 111/64 111/64 88/50 O2 Sat by Pulse 99 99 95 Oximetry 11/19/18 11/19/18 11/19/18 02:00 03:00 04:00 Pulse Rate 55 L 53 L 52 L Respiratory 14 11 L 14 Rate Blood Pressure 74/48 79/47 85/54 O2 Sat by Pulse Oximetry 11/19/18 11/19/18 11/19/18 05:00 06:00 07:00 Pulse Rate 52 L 51 L 50 L Respiratory 14 16 14 Rate Blood Pressure 93/56 86/48 89/46 O2 Sat by Pulse 99 99 98 Oximetry - Labs CBC & Chem 7: 11/18/18 11:03 11/19/18 04:52 Labs: Abnormal lab results 11/18/18 11/18/18 11/18/18 Range/Units 11:01 11:03 11:03 Hgb 16.4 H (11.8-15.2) gm/dl Hct 50.2 H (35.5-45.6) % MCV 100 H (84-94) fl MCH 33 H (28-32) pg Lymph # 0.9 L (1.2-5.4) K/mm3 Seg Neutrophils % 81.3 H (40.0-70.0) % VBG pH (7.320-7.420) Sodium 126 L (137-145) mmol/L Potassium 7.3 H* (3.6-5.0) mmol/L Chloride 79.4 L (98-107) mmol/L Carbon Dioxide 18 L (22-30) mmol/L BUN 76 H (9-20) mg/dL Creatinine 2.0 H (0.8-1.5) mg/dL Glucose 718 H* (75-100) mg/dL POC Glucose 495 H (70-105) Hemoglobin A1c (4-6) % Calcium 10.4 H (8.4-10.2) mg/dL Phosphorus (2.5-4.5) mg/dL Magnesium (1.7-2.3) mg/dL Alkaline Phosphatase 202 H (35-129) units/L Total Protein (6.3-8.2) g/dL Albumin (3.9-5) g/dL 11/18/18 11/18/18 11/18/18 Range/Units 11:03 11:03 12:57 Hgb (11.8-15.2) gm/dl Hct (35.5-45.6) % MCV (84-94) fl MCH (28-32) pg Lymph # (1.2-5.4) K/mm3 Seg Neutrophils % (40.0-70.0) % VBG pH 7.229 L (7.320-7.420) Sodium (137-145) mmol/L Potassium (3.6-5.0) mmol/L Chloride (98-107) mmol/L Carbon Dioxide (22-30) mmol/L BUN (9-20) mg/dL Creatinine (0.8-1.5) mg/dL Glucose (75-100) mg/dL POC Glucose 469 H (70-105) Hemoglobin A1c (4-6) % Calcium (8.4-10.2) mg/dL Phosphorus 6.70 H (2.5-4.5) mg/dL Magnesium 3.20 H (1.7-2.3) mg/dL Alkaline Phosphatase (35-129) units/L Total Protein (6.3-8.2) g/dL Albumin (3.9-5) g/dL 11/18/18 11/18/18 11/18/18 Range/Units 14:03 14:10 15:13 Hgb (11.8-15.2) gm/dl Hct (35.5-45.6) % MCV (84-94) fl MCH (28-32) pg Lymph # (1.2-5.4) K/mm3 Seg Neutrophils % (40.0-70.0) % VBG pH (7.320-7.420) Sodium 136 L D (137-145) mmol/L Potassium 5.4 H D (3.6-5.0) mmol/L Chloride 93.0 L (98-107) mmol/L Carbon Dioxide 16 L (22-30) mmol/L BUN 69 H (9-20) mg/dL Creatinine 1.8 H (0.8-1.5) mg/dL Glucose 463 H (75-100) mg/dL POC Glucose 462 H 437 H (70-105) Hemoglobin A1c (4-6) % Calcium (8.4-10.2) mg/dL Phosphorus (2.5-4.5) mg/dL Magnesium (1.7-2.3) mg/dL Alkaline Phosphatase (35-129) units/L Total Protein (6.3-8.2) g/dL Albumin (3.9-5) g/dL 11/18/18 11/18/18 11/18/18 Range/Units 16:20 17:12 18:28 Hgb (11.8-15.2) gm/dl Hct (35.5-45.6) % MCV (84-94) fl MCH (28-32) pg Lymph # (1.2-5.4) K/mm3 Seg Neutrophils % (40.0-70.0) % VBG pH (7.320-7.420) Sodium (137-145) mmol/L Potassium (3.6-5.0) mmol/L Chloride (98-107) mmol/L Carbon Dioxide (22-30) mmol/L BUN (9-20) mg/dL Creatinine (0.8-1.5) mg/dL Glucose (75-100) mg/dL POC Glucose 391 H 277 H 211 H (70-105) Hemoglobin A1c (4-6) % Calcium (8.4-10.2) mg/dL Phosphorus (2.5-4.5) mg/dL Magnesium (1.7-2.3) mg/dL Alkaline Phosphatase (35-129) units/L Total Protein (6.3-8.2) g/dL Albumin (3.9-5) g/dL 11/18/18 11/18/18 11/18/18 Range/Units 18:29 18:29 18:29 Hgb (11.8-15.2) gm/dl Hct (35.5-45.6) % MCV (84-94) fl MCH (28-32) pg Lymph # (1.2-5.4) K/mm3 Seg Neutrophils % (40.0-70.0) % VBG pH (7.320-7.420) Sodium (137-145) mmol/L Potassium 5.4 H (3.6-5.0) mmol/L Chloride (98-107) mmol/L Carbon Dioxide 21 L (22-30) mmol/L BUN 57 H (9-20) mg/dL Creatinine (0.8-1.5) mg/dL Glucose 154 H (75-100) mg/dL POC Glucose (70-105) Hemoglobin A1c > 20.0 H (4-6) % Calcium (8.4-10.2) mg/dL Phosphorus (2.5-4.5) mg/dL Magnesium 2.50 H (1.7-2.3) mg/dL Alkaline Phosphatase (35-129) units/L Total Protein (6.3-8.2) g/dL Albumin (3.9-5) g/dL 11/18/18 11/18/18 11/18/18 Range/Units 19:24 20:08 22:09 Hgb (11.8-15.2) gm/dl Hct (35.5-45.6) % MCV (84-94) fl MCH (28-32) pg Lymph # (1.2-5.4) K/mm3 Seg Neutrophils % (40.0-70.0) % VBG pH (7.320-7.420) Sodium (137-145) mmol/L Potassium (3.6-5.0) mmol/L Chloride (98-107) mmol/L Carbon Dioxide (22-30) mmol/L BUN (9-20) mg/dL Creatinine (0.8-1.5) mg/dL Glucose (75-100) mg/dL POC Glucose 202 H 175 H 122 H (70-105) Hemoglobin A1c (4-6) % Calcium (8.4-10.2) mg/dL Phosphorus (2.5-4.5) mg/dL Magnesium (1.7-2.3) mg/dL Alkaline Phosphatase (35-129) units/L Total Protein (6.3-8.2) g/dL Albumin (3.9-5) g/dL 11/18/18 11/19/18 11/19/18 Range/Units 23:15 00:09 00:19 Hgb (11.8-15.2) gm/dl Hct (35.5-45.6) % MCV (84-94) fl MCH (28-32) pg Lymph # (1.2-5.4) K/mm3 Seg Neutrophils % (40.0-70.0) % VBG pH (7.320-7.420) Sodium 135 L (137-145) mmol/L Potassium (3.6-5.0) mmol/L Chloride (98-107) mmol/L Carbon Dioxide 21 L (22-30) mmol/L BUN 47 H (9-20) mg/dL Creatinine (0.8-1.5) mg/dL Glucose 156 H (75-100) mg/dL POC Glucose 136 H 168 H (70-105) Hemoglobin A1c (4-6) % Calcium (8.4-10.2) mg/dL Phosphorus (2.5-4.5) mg/dL Magnesium (1.7-2.3) mg/dL Alkaline Phosphatase (35-129) units/L Total Protein (6.3-8.2) g/dL Albumin (3.9-5) g/dL 11/19/18 11/19/18 Range/Units 01:28 04:52 Hgb (11.8-15.2) gm/dl Hct (35.5-45.6) % MCV (84-94) fl MCH (28-32) pg Lymph # (1.2-5.4) K/mm3 Seg Neutrophils % (40.0-70.0) % VBG pH (7.320-7.420) Sodium (137-145) mmol/L Potassium (3.6-5.0) mmol/L Chloride 107.5 H (98-107) mmol/L Carbon Dioxide (22-30) mmol/L BUN 43 H (9-20) mg/dL Creatinine (0.8-1.5) mg/dL Glucose (75-100) mg/dL POC Glucose 135 H (70-105) Hemoglobin A1c (4-6) % Calcium 8.2 L (8.4-10.2) mg/dL Phosphorus (2.5-4.5) mg/dL Magnesium (1.7-2.3) mg/dL Alkaline Phosphatase (35-129) units/L Total Protein 5.0 L D (6.3-8.2) g/dL Albumin 2.7 L (3.9-5) g/dL
[2018-11-19] MEDS: HumaLOG SUB-Q SCH ×4 (08:38→23:04)
[2018-11-19] MEDS: COREG PO SCH ×2 (09:34→22:53)
[2018-11-19] MEDS: NORVASC PO SCH (09:35)
[2018-11-19] MEDS: PEPCID IV SCH ×2 (09:38→22:50)
[2018-11-19] MEDS: NEURONTIN PO SCH ×2 (09:38→22:50)
--- NOTE | 2018-11-19 11:05 | Progress Note ---
Assessment and Plan 63 y/o male with hyperglycemia, presumed acute renal failure, electrolyte imbalance and malnutriton with likely gingivitis. 1. Can stop q6hour BMP's 2. Insulin drip stopped and patient started on long acting insulin last night. Not sure if the amount is based upon calculation of total insulin needs or not. Would keep this in mind on the floor. 3. CC diet 4. Suggest stopping fluids as patient is tolerating PO 5. Renal was already consulted so follow their recs. 6. Metabolic acidosis is likely multifactorial given renal failure and elevated blood sugar, this is resolving. 7. Would suggest not giving BP meds as patient is likely still volume deplete. These were ordered but held this am. 8. Ok with restarting statin 9. Needs outpatient dental follow up 10. Needs nutrition consult for help with dietary needs and management. Stable for discharge to the floor. Will sign off once out of unit. Subjective Date of service: 11/19/18 Principal diagnosis: DKA, LORIE, Interval history: no acute events. Anion Gap has closed and renal function has improved. Objective - Constitutional Vitals: Vital Signs - 12hr 11/18/18 11/19/18 11/19/18 23:12 00:00 01:00 Temperature Pulse Rate 64 59 L 57 L Respiratory 16 15 17 Rate Blood Pressure 111/64 111/64 88/50 O2 Sat by Pulse 99 99 95 Oximetry 11/19/18 11/19/18 11/19/18 02:00 03:00 04:00 Temperature Pulse Rate 55 L 53 L 52 L Respiratory 14 11 L 14 Rate Blood Pressure 74/48 79/47 85/54 O2 Sat by Pulse Oximetry 11/19/18 11/19/18 11/19/18 05:00 06:00 07:00 Temperature Pulse Rate 52 L 51 L 50 L Respiratory 14 16 14 Rate Blood Pressure 93/56 86/48 89/46 O2 Sat by Pulse 99 99 98 Oximetry 11/19/18 11/19/18 11/19/18 08:00 09:00 09:34 Temperature 97.6 F Pulse Rate 52 L 58 L 53 L Respiratory 12 13 Rate Blood Pressure 95/55 99/63 99/63 O2 Sat by Pulse 98 96 Oximetry 11/19/18 11/19/18 09:35 10:00 Temperature Pulse Rate 53 L 52 L Respiratory 18 Rate Blood Pressure 99/63 100/54 O2 Sat by Pulse Oximetry - Labs CBC & Chem 7: 11/18/18 11:03 11/19/18 04:52 Labs: Abnormal lab results 11/18/18 11/18/18 11/18/18 Range/Units 11:03 11:03 11:03 Hgb 16.4 H (11.8-15.2) gm/dl Hct 50.2 H (35.5-45.6) % MCV 100 H (84-94) fl MCH 33 H (28-32) pg Lymph # 0.9 L (1.2-5.4) K/mm3 Seg Neutrophils % 81.3 H (40.0-70.0) % VBG pH 7.229 L (7.320-7.420) Sodium 126 L (137-145) mmol/L Potassium 7.3 H* (3.6-5.0) mmol/L Chloride 79.4 L (98-107) mmol/L Carbon Dioxide 18 L (22-30) mmol/L BUN 76 H (9-20) mg/dL Creatinine 2.0 H (0.8-1.5) mg/dL Glucose 718 H* (75-100) mg/dL POC Glucose (70-105) Hemoglobin A1c (4-6) % Calcium 10.4 H (8.4-10.2) mg/dL Phosphorus (2.5-4.5) mg/dL Magnesium (1.7-2.3) mg/dL Alkaline Phosphatase 202 H (35-129) units/L Total Protein (6.3-8.2) g/dL Albumin (3.9-5) g/dL 11/18/18 11/18/18 11/18/18 Range/Units 11:03 12:57 14:03 Hgb (11.8-15.2) gm/dl Hct (35.5-45.6) % MCV (84-94) fl MCH (28-32) pg Lymph # (1.2-5.4) K/mm3 Seg Neutrophils % (40.0-70.0) % VBG pH (7.320-7.420) Sodium (137-145) mmol/L Potassium (3.6-5.0) mmol/L Chloride (98-107) mmol/L Carbon Dioxide (22-30) mmol/L BUN (9-20) mg/dL Creatinine (0.8-1.5) mg/dL Glucose (75-100) mg/dL POC Glucose 469 H 462 H (70-105) Hemoglobin A1c (4-6) % Calcium (8.4-10.2) mg/dL Phosphorus 6.70 H (2.5-4.5) mg/dL Magnesium 3.20 H (1.7-2.3) mg/dL Alkaline Phosphatase (35-129) units/L Total Protein (6.3-8.2) g/dL Albumin (3.9-5) g/dL 11/18/18 11/18/18 11/18/18 Range/Units 14:10 15:13 16:20 Hgb (11.8-15.2) gm/dl Hct (35.5-45.6) % MCV (84-94) fl MCH (28-32) pg Lymph # (1.2-5.4) K/mm3 Seg Neutrophils % (40.0-70.0) % VBG pH (7.320-7.420) Sodium 136 L D (137-145) mmol/L Potassium 5.4 H D (3.6-5.0) mmol/L Chloride 93.0 L (98-107) mmol/L Carbon Dioxide 16 L (22-30) mmol/L BUN 69 H (9-20) mg/dL Creatinine 1.8 H (0.8-1.5) mg/dL Glucose 463 H (75-100) mg/dL POC Glucose 437 H 391 H (70-105) Hemoglobin A1c (4-6) % Calcium (8.4-10.2) mg/dL Phosphorus (2.5-4.5) mg/dL Magnesium (1.7-2.3) mg/dL Alkaline Phosphatase (35-129) units/L Total Protein (6.3-8.2) g/dL Albumin (3.9-5) g/dL 11/18/18 11/18/18 11/18/18 Range/Units 17:12 18:28 18:29 Hgb (11.8-15.2) gm/dl Hct (35.5-45.6) % MCV (84-94) fl MCH (28-32) pg Lymph # (1.2-5.4) K/mm3 Seg Neutrophils % (40.0-70.0) % VBG pH (7.320-7.420) Sodium (137-145) mmol/L Potassium 5.4 H (3.6-5.0) mmol/L Chloride (98-107) mmol/L Carbon Dioxide 21 L (22-30) mmol/L BUN 57 H (9-20) mg/dL Creatinine (0.8-1.5) mg/dL Glucose 154 H (75-100) mg/dL POC Glucose 277 H 211 H (70-105) Hemoglobin A1c (4-6) % Calcium (8.4-10.2) mg/dL Phosphorus (2.5-4.5) mg/dL Magnesium (1.7-2.3) mg/dL Alkaline Phosphatase (35-129) units/L Total Protein (6.3-8.2) g/dL Albumin (3.9-5) g/dL 11/18/18 11/18/18 11/18/18 Range/Units 18:29 18:29 19:24 Hgb (11.8-15.2) gm/dl Hct (35.5-45.6) % MCV (84-94) fl MCH (28-32) pg Lymph # (1.2-5.4) K/mm3 Seg Neutrophils % (40.0-70.0) % VBG pH (7.320-7.420) Sodium (137-145) mmol/L Potassium (3.6-5.0) mmol/L Chloride (98-107) mmol/L Carbon Dioxide (22-30) mmol/L BUN (9-20) mg/dL Creatinine (0.8-1.5) mg/dL Glucose (75-100) mg/dL POC Glucose 202 H (70-105) Hemoglobin A1c > 20.0 H (4-6) % Calcium (8.4-10.2) mg/dL Phosphorus (2.5-4.5) mg/dL Magnesium 2.50 H (1.7-2.3) mg/dL Alkaline Phosphatase (35-129) units/L Total Protein (6.3-8.2) g/dL Albumin (3.9-5) g/dL 11/18/18 11/18/18 11/18/18 Range/Units 20:08 22:09 23:15 Hgb (11.8-15.2) gm/dl Hct (35.5-45.6) % MCV (84-94) fl MCH (28-32) pg Lymph # (1.2-5.4) K/mm3 Seg Neutrophils % (40.0-70.0) % VBG pH (7.320-7.420) Sodium (137-145) mmol/L Potassium (3.6-5.0) mmol/L Chloride (98-107) mmol/L Carbon Dioxide (22-30) mmol/L BUN (9-20) mg/dL Creatinine (0.8-1.5) mg/dL Glucose (75-100) mg/dL POC Glucose 175 H 122 H 136 H (70-105) Hemoglobin A1c (4-6) % Calcium (8.4-10.2) mg/dL Phosphorus (2.5-4.5) mg/dL Magnesium (1.7-2.3) mg/dL Alkaline Phosphatase (35-129) units/L Total Protein (6.3-8.2) g/dL Albumin (3.9-5) g/dL 11/19/18 11/19/18 11/19/18 Range/Units 00:09 00:19 01:28 Hgb (11.8-15.2) gm/dl Hct (35.5-45.6) % MCV (84-94) fl MCH (28-32) pg Lymph # (1.2-5.4) K/mm3 Seg Neutrophils % (40.0-70.0) % VBG pH (7.320-7.420) Sodium 135 L (137-145) mmol/L Potassium (3.6-5.0) mmol/L Chloride (98-107) mmol/L Carbon Dioxide 21 L (22-30) mmol/L BUN 47 H (9-20) mg/dL Creatinine (0.8-1.5) mg/dL Glucose 156 H (75-100) mg/dL POC Glucose 168 H 135 H (70-105) Hemoglobin A1c (4-6) % Calcium (8.4-10.2) mg/dL Phosphorus (2.5-4.5) mg/dL Magnesium (1.7-2.3) mg/dL Alkaline Phosphatase (35-129) units/L Total Protein (6.3-8.2) g/dL Albumin (3.9-5) g/dL 11/19/18 11/19/18 Range/Units 04:52 08:31 Hgb (11.8-15.2) gm/dl Hct (35.5-45.6) % MCV (84-94) fl MCH (28-32) pg Lymph # (1.2-5.4) K/mm3 Seg Neutrophils % (40.0-70.0) % VBG pH (7.320-7.420) Sodium (137-145) mmol/L Potassium (3.6-5.0) mmol/L Chloride 107.5 H (98-107) mmol/L Carbon Dioxide (22-30) mmol/L BUN 43 H (9-20) mg/dL Creatinine (0.8-1.5) mg/dL Glucose (75-100) mg/dL POC Glucose 219 H (70-105) Hemoglobin A1c (4-6) % Calcium 8.2 L (8.4-10.2) mg/dL Phosphorus (2.5-4.5) mg/dL Magnesium (1.7-2.3) mg/dL Alkaline Phosphatase (35-129) units/L Total Protein 5.0 L D (6.3-8.2) g/dL Albumin 2.7 L (3.9-5) g/dL Medications & Allergies - Medications Allergies/Adverse Reactions: Allergies No Known Allergies Allergy (Verified 08/09/15 13:13) Home Medications: Home Medications Medication Instructions Recorded Confirmed Last Taken Type amLODIPine [Norvasc] 10 mg PO DAILY 08/10/15 11/18/18 11/15/18 History AtorvaSTATin [Lipitor] 40 mg PO QHS 11/18/18 11/18/18 11/15/18 History Carvedilol [Coreg] 25 mg PO BID 11/18/18 11/18/18 11/15/18 History Gabapentin [Neurontin] 300 mg PO BID 11/18/18 11/18/18 11/15/18 History Insulin NPH Human Isophane See Protocol [facility] 11/18/18 11/18/18 11/11/18 History [HumuLIN N] Insulin Regular, Human [HumuLIN R] See Protocol [facility] 11/18/18 11/18/18 11/11/18 History Lisinopril [Zestril TAB] 40 mg PO QDAY 11/18/18 11/18/18 11/15/18 History Active Medications: Generic Name Dose Route Start Last Admin Trade Name Freq PRN Reason Stop Dose Admin Acetaminophen 650 mg 11/18/18 17:44 Tylenol PO Q4H PRN Pain MILD(1-3)/Fever >100.5/HAMMOND Amlodipine Besylate 10 mg 11/18/18 18:00 11/19/18 09:35 Norvasc PO Not Given DAILY [facility] Atorvastatin Calcium 40 mg 11/19/18 22:00 Lipitor PO QHS [facility] Carvedilol 25 mg 11/18/18 22:00 11/19/18 09:34 Coreg PO Not Given BID [facility] Dextrose 50 ml 11/19/18 02:39 D50w (25gm) Syringe IV PRN PRN Hypoglycemia Famotidine 20 mg 11/18/18 22:00 11/19/18 09:38 Pepcid IV 20 mg BID [facility] Administration Gabapentin 300 mg 11/18/18 22:00 11/19/18 09:38 Neurontin PO 300 mg BID [facility] Administration Hydralazine HCl 10 mg 11/18/18 17:51 Apresoline IV Q3H PRN Blood Pressure Insulin Glargine 10 units 11/19/18 22:00 Lantus SUB-Q QHS [facility] Insulin Human Lispro 0 unit 11/19/18 07:30 11/19/18 08:38 Humalog SUB-Q 3 unit ACHS [facility]ON Administration Protocol Metoclopramide HCl 10 mg 11/18/18 17:44 Reglan IV Q6H PRN Nausea And Vomiting Morphine Sulfate 2 mg 11/18/18 17:44 Morphine IV Q4H PRN Pain, Moderate (4-6) Ondansetron HCl 4 mg 11/18/18 17:44 Zofran IV Q3H PRN Nausea And Vomiting Sodium Chloride 10 ml 11/18/18 22:00 11/19/18 09:38 Sodium Chloride Flush Syringe 10 Ml IV 10 ml BID [facility]ON Administration Sodium Chloride 10 ml 11/18/18 17:44 Sodium Chloride Flush Syringe 10 Ml IV PRN PRN LINE FLUSH
[2018-11-19 11:22] LABS: BUN/Creatinine Ratio 36; Blood Urea Nitrogen 40 mg/dL (9-20); Calcium 8.4 mg/dL (8.4-10.2); Hemolysis Index 1
--- NOTE | 2018-11-19 11:30 | Consultation ---
History of Present Illness - History of Present Illness Thank you for the consultation ! Patient was evaluated today My assessment and plan are as follows Acute renal failure appears to have resolved mostly resulting from DKA dehydrat ion Hyperkalemia likely due to insulin deficiency renal failure as well as RADU inhibitor that should be avoided for now Diabetic ketoacidosis improving, was quite severe with acidosis as well as hyper kalemia concerning potassium was around 7.2 Hypermagnesemia please do a follow-up Pseudohyponatremia Patient does have multiple risk factors for underlying chronic kidney disease and upon discharge will need to make an appointment for follow-up in the office Overall doing much better from renal standpoint Had a detailed discussion with patient about the plan of care from renal standpoint. All questions were answered labs and pertinent imaging findings were explained to the patient and simple [place]. Prognosis: Guarded We'll continue to follow and make recommendation from renal standpoint Thank you for the consultation. History of presenting illness; Patient is 63-year-old male who has been admitted here with diabetic ketoacidosis acute renal failure as well as hyperkalemia, patient was started with IV fluid insulin drip with which his potassium started improving current potassium was around 4.7 renal function has completely normalized Hyperkalemia was treated conservatively, patient feels much better today He has no evidence of any acidosis or hyperkalemia renal function has normalized Patient was taking RADU inhibitor in the outpatient setting even though he was in DKA Past medical history significant for: Diabetes mellitus type 2 Hypertension Diabetic ketoacidosis Current allergies: Reviewed Home medication/present medication: Reviewed Social history: Reviewed from the current chart Family history: Reviewed from the current chart Review of system is positive for; generalized weakness fatigue malaise dehydration All other review of systems were negative Physical examination Vitals: Reviewed from this admission Gen.: No acute distress HEENT: Normocephalic/atraumatic skull oral mucosa moist minimal pallor no icterus or uremic order Neck: Supple without any thyromegaly nodular mass or JVD Chest: Clear to auscultation anteriorly few faint basilar crackles otherwise unremarkable Heart: Regular rate and rhythm S1 and S2 heard no S3-S4 no pericardial rub Abdomen: Soft nontender no guarding rigidity rebound organomegaly no suprapubic masses, no CVA tenderness no renal bruit Back: No CVA tenderness Derm: No petechial rashes dry skin Extremity: Pulses palpable no peripheral cyanosis, patient has no edema in fact has dry skin Neurological: Alert awake follows commands Psychiatric: No agitation and aggression Labs and x-rays: Were reviewed from this admission Past History Past Medical History: diabetes, hypertension, hyperlipidemia Social history: Family history: no significant family history Medications and Allergies Allergies Allergy/AdvReac Type Severity Reaction Status Date / Time No Known Allergies Allergy Verified 08/09/15 13:13 Home Medications Medication Instructions Recorded Confirmed Last Taken Type amLODIPine [Norvasc] 10 mg PO DAILY 08/10/15 11/18/18 11/15/18 History AtorvaSTATin [Lipitor] 40 mg PO QHS 11/18/18 11/18/18 11/15/18 History Carvedilol [Coreg] 25 mg PO BID 11/18/18 11/18/18 11/15/18 History Gabapentin [Neurontin] 300 mg PO BID 11/18/18 11/18/18 11/15/18 History Insulin NPH Human Isophane See Protocol IN Q 11/18/18 11/18/18 11/11/18 History [HumuLIN N] Insulin Regular, Human [HumuLIN R] See Protocol [facility] 11/18/18 11/18/18 11/11/18 History Lisinopril [Zestril TAB] 40 mg PO QDAY 11/18/18 11/18/18 11/15/18 History Active Meds: Active Medications Acetaminophen (Tylenol) 650 mg PO Q4H PRN PRN Reason: Pain MILD(1-3)/Fever >100.5/HAMMOND Amlodipine Besylate (Norvasc) 10 mg PO DAILY [facility] Last Admin: 11/19/18 09:35 Dose: Not Given Documented by: Atorvastatin Calcium (Lipitor) 40 mg PO QHS [facility] Carvedilol (Coreg) 25 mg PO BID [facility] Last Admin: 11/19/18 09:34 Dose: Not Given Documented by: Dextrose (D50w (25gm) Syringe) 50 ml IV PRN PRN PRN Reason: Hypoglycemia Famotidine (Pepcid) 20 mg IV BID [facility] Last Admin: 11/19/18 09:38 Dose: 20 mg Documented by: Gabapentin (Neurontin) 300 mg PO BID [facility] Last Admin: 11/19/18 09:38 Dose: 300 mg Documented by: Hydralazine HCl (Apresoline) 10 mg IV Q3H PRN PRN Reason: Blood Pressure Insulin Glargine (Lantus) 10 units SUB-Q QHS [facility] Insulin Human Lispro (Humalog) 0 unit SUB-Q ACHS [facility]; Protocol Last Admin: 11/19/18 08:38 Dose: 3 unit Documented by: Metoclopramide HCl (Reglan) 10 mg IV Q6H PRN PRN Reason: Nausea And Vomiting Morphine Sulfate (Morphine) 2 mg IV Q4H PRN PRN Reason: Pain, Moderate (4-6) Ondansetron HCl (Zofran) 4 mg IV Q3H PRN PRN Reason: Nausea And Vomiting Sodium Chloride (Sodium Chloride Flush Syringe 10 Ml) 10 ml IV BID [facility] Last Admin: 11/19/18 09:38 Dose: 10 ml Documented by: Sodium Chloride (Sodium Chloride Flush Syringe 10 Ml) 10 ml IV PRN PRN PRN Reason: LINE FLUSH Exam - Vital Signs Vital signs: Vital Signs Pulse Resp BP Pulse Ox 82 15 101/62 99 11/18/18 07:17 11/18/18 07:17 11/18/18 07:17 11/18/18 07:17 Results - Lab Results 11/18/18 11:03 11/19/18 10:46 Most recent lab results Calcium 8.4 mg/dL (8.4-10.2) 11/19/18 10:46 Phosphorus 3.20 mg/dL (2.5-4.5) D 11/18/18 18:29 Magnesium 2.50 mg/dL (1.7-2.3) H 11/18/18 18:29 31 mmol/L 11/18/18 Unknown
[2018-11-19 15:19] LABS: BUN/Creatinine Ratio 39; Blood Urea Nitrogen 39 mg/dL (9-20); Hemolysis Index 49
[2018-11-19 19:31] LABS: BUN/Creatinine Ratio 32; Blood Urea Nitrogen 35 mg/dL (9-20); Hemolysis Index 7
[2018-11-19] MEDS: LANTUS SUB-Q SCH (22:50)
[2018-11-20 00:50] LABS: BUN/Creatinine Ratio 28; Blood Urea Nitrogen 31 mg/dL (9-20); Hemolysis Index 4
[2018-11-20 07:26] LABS: Basophils % (Auto) 0.6 % (0.0-1.8); Eosinophils # (Auto) 0.1 K/mm3 (0.0-0.4); Eosinophils % (Auto) 2.3 % (0.0-4.3); Lymphocytes # (Auto) 1.7 K/mm3 (1.2-5.4); Lymphocytes % (Auto) 36.7 % (13.4-35.0); Mean Corpuscular HGB Conc 34 % (32-34); Mean Corpuscular Volume 99 fl (84-94); Monocytes # (Auto) 0.2 K/mm3 (0.0-0.8); Monocytes % (Auto) 4.9 % (0.0-7.3); Platelet Count 198 K/mm3 (140-440); Red Blood Count 3.68 M/mm3 (3.65-5.03); Red Cell Distribution Width 13.9 % (13.2-15.2)
--- NOTE | 2018-11-20 07:49 | Progress Note ---
Assessment and Plan 63-year-old male with a history of diabetes mellitus admitted to the emergency department for DKA have not been taken his insulin for the past 1 week because his things he shouldn't be taking any insulin since his appetite is low and is not eating very well. Hemoglobin A1c was over 12% on admission. Is on insulin drip and has improved - DKA (diabetic ketoacidoses) - resolved Continue sliding-scale insulin Consistent carbohydrate diet IV hydration - T2 DM A1c was about 20% Continue sliding-scale insulin - Hyponatremia Sec to High BG levels improved Continue with normal saline - LORIE (acute kidney injury) Sec to ATN - resolving Continue with IV hydration - HTN (hypertension) Cont antihypertensives - Malnutrition Dietitian consult - HLD (hyperlipidemia) COnt statins - Peripheral neuropathy Cont Gabapentin - DVT prophylaxis On Lovenox and GI prophylaxis with Pepcid Pt is full code CCT 35 mins Subjective Date of service: 11/20/18 Principal diagnosis: DKA, LORIE, Interval history: Pt seen and examined. alert and interactive. No Nausea or vomiting. Transplant of the units yesterday 11/19/2018 Objective - Exam Narrative Exam: Constitutional: Well-nourished well-developed. In no distress Head: Normocephalic atraumatic Eyes: Pupils are equal round and reactive to light Nose: No enlarged turbinates, no septal deviation. Mouth: Moist mucous membranes. Neck: Supple no thyromegaly. No bruit. No JVD Heart: Regular rate and rhythm, S1-S2 normal. No rubs murmurs or gallop Lungs: Clear to auscultation bilaterally. no rales or rhonchi Abdomen: Soft, nontender. Bowel sound are present. Extremities: No edema, no cyanosis, no clubbing. Neuro: Alert oriented Oriented x3. No focal sensory or motor deficit. Skin: No rashes or hyperpigmented spots Musculoskeletal system: No joint pain or swelling Hematological: No petechia or subcutanous hemorrhages. Immunological: No multiple septic spots on the skin Lymphatic: No generalized lymphadenopathy Psychiatry: Euthymic. Calm. - Constitutional Vitals: Vital Signs - 12hr 11/19/18 11/19/18 11/20/18 22:09 22:53 04:54 Temperature 97.6 F 97.6 F Pulse Rate 51 L 57 L Respiratory 20 20 Rate Blood Pressure 110/62 110/62 103/58 O2 Sat by Pulse 94 97 Oximetry - Labs CBC & Chem 7: 11/20/18 06:38 11/20/18 00:08 Labs: Abnormal lab results 11/19/18 11/19/18 11/19/18 Range/Units 08:31 10:46 11:57 MCV (84-94) fl MCH (28-32) pg Lymph % (Auto) (13.4-35.0) % Sodium (137-145) mmol/L Potassium (3.6-5.0) mmol/L Carbon Dioxide (22-30) mmol/L BUN 40 H (9-20) mg/dL Glucose 254 H (75-100) mg/dL POC Glucose 219 H 332 H (70-105) 11/19/18 11/19/18 11/19/18 Range/Units 13:33 17:47 18:10 MCV (84-94) fl MCH (28-32) pg Lymph % (Auto) (13.4-35.0) % Sodium 134 L 136 L (137-145) mmol/L Potassium 5.5 H (3.6-5.0) mmol/L Carbon Dioxide 16 L (22-30) mmol/L BUN 39 H 35 H (9-20) mg/dL Glucose 283 H 130 H (75-100) mg/dL POC Glucose 190 H (70-105) 11/19/18 11/20/18 11/20/18 Range/Units 22:14 00:08 06:38 MCV 99 H (84-94) fl MCH 33 H (28-32) pg Lymph % (Auto) 36.7 H (13.4-35.0) % Sodium 134 L (137-145) mmol/L Potassium (3.6-5.0) mmol/L Carbon Dioxide (22-30) mmol/L BUN 31 H (9-20) mg/dL Glucose 232 H (75-100) mg/dL POC Glucose 63 L (70-105)
[2018-11-20 07:56] LABS: Alanine Aminotransferase 13 units/L (7-56); Albumin 2.9 g/dL (3.9-5); BUN/Creatinine Ratio 28; Blood Urea Nitrogen 28 mg/dL (9-20); Calcium 8.6 mg/dL (8.4-10.2); Hemolysis Index 6
[2018-11-20 09:18] LABS: Hemoglobin 12.2 gm/dl (11.8-15.2)
[2018-11-20 09:19] LABS: Hematocrit 35.9 % (35.5-45.6)
[2018-11-20] MEDS: HumaLOG SUB-Q SCH ×4 (09:50→21:46)
[2018-11-20] MEDS: COREG PO SCH ×2 (09:51→21:46)
[2018-11-20] MEDS: NORVASC PO SCH (09:55)
[2018-11-20] MEDS: NEURONTIN PO SCH ×2 (09:56→21:44)
[2018-11-20] MEDS: PEPCID IV SCH (09:57)
[2018-11-20] MEDS: SODIUM CHLORIDE FLUSH SYRINGE 10 ML IV SCH ×2 (09:57→21:46)
[2018-11-20] MEDS ORDERED: CITRATE OF MAGNESIA PO STA (10:18)
--- NOTE | 2018-11-20 19:20 | Progress Note ---
Assessment and Plan - Patient Problems (1) LORIE (acute kidney injury) Current Visit: Yes Status: Acute Plan to address problem: Acute kidney injury: Resolved Ensure blood glucose control and avoid dehydration Nephrology will sign off (2) DKA (diabetic ketoacidoses) Current Visit: Yes Status: Acute Qualifiers: Diabetes mellitus type: type 2 Diabetes mellitus complication detail: without coma Qualified Code(s): E11.10 - Type 2 diabetes mellitus with ketoacidosis without coma Plan to address problem: DKA Still have an anion gap Continue blood glucose control Monitor fingersticks and ensure insulin (3) Hyperkalemia Current Visit: Yes Status: Acute Plan to address problem: Hyperkalemia resolved Blood glucose control (4) Hyponatremia Current Visit: Yes Status: Acute Plan to address problem: Hyponatremia in the setting of hyperglycemia continue blood glucose control Subjective Principal diagnosis: DKA, LORIE, Interval history: 63-year-old with medical history of diabetes mellitus type 2 admitted with hy perglycemia and multiple electrolyte abnormalities including hyperkalemia and acute kidney injury Patient's seen today improving Denies any shortness appointment denies any fevers chills denies any nausea vomiting blood glucose is improving Objective - Vital Signs Vital signs: Vital Signs - 12hr 11/20/18 11/20/18 11/20/18 09:51 09:55 10:00 Temperature Pulse Rate 57 L 57 L Respiratory Rate Blood Pressure 103/58 103/58 O2 Sat by Pulse 97 Oximetry 11/20/18 11/20/18 12:25 17:23 Temperature 97.4 F L 97.4 F L Pulse Rate 56 L 59 L Respiratory 16 16 Rate Blood Pressure 122/73 137/73 O2 Sat by Pulse 100 100 Oximetry - General Appearance General appearance: well-developed, well-nourished EENT: ATNC, PERRL, mucous membranes dry Neck: no JVD Respiratory: Present: Clear to Ascultation Cardiology: regular, S1S2 Gastrointestinal: normal, normoactive bowel sounds Integumentary: no rash Neurologic: no focal deficit, CN 3-12 intact Musculoskeletal: deferred Psychiatric: mood/affect appropriate - Lab 11/20/18 06:38 11/20/18 06:38 Most recent lab results Calcium 8.6 mg/dL (8.4-10.2) 11/20/18 06:38 Phosphorus 2.20 mg/dL (2.5-4.5) L D 11/20/18 06:38 Magnesium 1.90 mg/dL (1.7-2.3) 11/20/18 06:38 31 mmol/L 11/18/18 Unknown - Imaging Chest x-ray: other (I viewed chest x-ray without any overt edema) Medications & Allergies - Medications Allergies/Adverse Reactions: Allergies No Known Allergies Allergy (Verified 08/09/15 13:13) Home Medications: Home Medications Medication Instructions Recorded Confirmed Last Taken Type amLODIPine [Norvasc] 10 mg PO DAILY 08/10/15 11/18/18 11/15/18 History AtorvaSTATin [Lipitor] 40 mg PO QHS 11/18/18 11/18/18 11/15/18 History Carvedilol [Coreg] 25 mg PO BID 11/18/18 11/18/18 11/15/18 History Gabapentin [Neurontin] 300 mg PO BID 11/18/18 11/18/18 11/15/18 History Insulin NPH Human Isophane See Protocol [facility] 11/18/18 11/18/18 11/11/18 H istory [HumuLIN N] Insulin Regular, Human [HumuLIN R] See Protocol [facility] 11/18/18 11/18/18 11/11/18 History Lisinopril [Zestril TAB] 40 mg PO QDAY 11/18/18 11/18/18 11/15/18 History Active Medications: Generic Name Dose Route Start Last Admin Trade Name Freq PRN Reason Stop Dose Admin Acetaminophen 650 mg 11/18/18 17:44 Tylenol PO Q4H PRN Pain MILD(1-3)/Fever >100.5/HAMMOND Amlodipine Besylate 10 mg 11/18/18 18:00 11/20/18 09:55 Norvasc PO Not Given DAILY [facility] Atorvastatin Calcium 40 mg 11/19/18 22:00 11/19/18 22:50 Lipitor PO 40 mg QHS [facility] Administration Carvedilol 25 mg 11/18/18 22:00 11/20/18 09:51 Coreg PO Not Given BID [facility] Dextrose 50 ml 11/19/18 02:39 D50w (25gm) Syringe IV PRN PRN Hypoglycemia Famotidine 20 mg 11/20/18 22:00 Pepcid PO BID [facility] Gabapentin 300 mg 11/18/18 22:00 11/20/18 09:56 Neurontin PO 300 mg BID [facility] Administration Hydralazine HCl 10 mg 11/18/18 17:51 Apresoline IV Q3H PRN Blood Pressure Insulin Glargine 10 units 11/19/18 22:00 11/19/18 22:50 Lantus SUB-Q Not Given QHS [facility] Insulin Human Lispro 0 unit 11/19/18 07:30 11/20/18 18:06 Humalog SUB-Q 3 unit [facility] Administration Protocol Metoclopramide HCl 10 mg 11/18/18 17:44 Reglan IV Q6H PRN Nausea And Vomiting Morphine Sulfate 2 mg 11/18/18 17:44 Morphine IV Q4H PRN Pain, Moderate (4-6) Ondansetron HCl 4 mg 11/18/18 17:44 Zofran IV Q3H PRN Nausea And Vomiting Sodium Chloride 10 ml 11/18/18 22:00 11/20/18 09:57 Sodium Chloride Flush Syringe 10 Ml IV 10 ml BID [facility] Administration Sodium Chloride 10 ml 11/18/18 17:44 Sodium Chloride Flush Syringe 10 Ml IV PRN PRN LINE FLUSH
[2018-11-20] MEDS: PEPCID PO SCH (21:44)
[2018-11-20] MEDS: LANTUS SUB-Q SCH (21:47)
[2018-11-21] MEDS: HumaLOG SUB-Q SCH ×4 (09:38→22:18)
[2018-11-21 10:03] LABS: Basophils % (Auto) 0.5 % (0.0-1.8); Eosinophils # (Auto) 0.1 K/mm3 (0.0-0.4); Eosinophils % (Auto) 1.9 % (0.0-4.3); Hemoglobin 12.5 gm/dl (11.8-15.2); Lymphocytes # (Auto) 1.6 K/mm3 (1.2-5.4); Lymphocytes % (Auto) 37.9 % (13.4-35.0); Mean Corpuscular HGB Conc 33 % (32-34); Mean Corpuscular Volume 98 fl (84-94); Monocytes # (Auto) 0.2 K/mm3 (0.0-0.8); Monocytes % (Auto) 4.9 % (0.0-7.3); Platelet Count 203 K/mm3 (140-440); Red Blood Count 3.87 M/mm3 (3.65-5.03); Red Cell Distribution Width 14.5 % (13.2-15.2)
[2018-11-21 10:56] LABS: Albumin 3.1 g/dL (3.9-5); BUN/Creatinine Ratio 21; Blood Urea Nitrogen 21 mg/dL (9-20); Calcium 8.8 mg/dL (8.4-10.2); Hemolysis Index 184
[2018-11-21] MEDS: COREG PO SCH ×2 (11:25→22:17)
[2018-11-21] MEDS: NORVASC PO SCH (11:26)
[2018-11-21] MEDS: NEURONTIN PO SCH ×2 (11:26→22:15)
[2018-11-21] MEDS: PEPCID PO SCH ×2 (11:27→22:15)
[2018-11-21] MEDS: SODIUM CHLORIDE FLUSH SYRINGE 10 ML IV SCH ×2 (11:28→22:25)
[2018-11-21] MEDS ORDERED: NACL 0.9% 1000 ML 1,000 ML IV ONE (12:30)
[2018-11-21 13:38] LABS: Alanine Aminotransferase 17 units/L (7-56)
--- NOTE | 2018-11-21 17:43 | Progress Note ---
Assessment and Plan Assessment and plan: 63-year-old male with a history of diabetes mellitus admitted to the emergency department for DKA have not been taken his insulin for the past 1 week because his things he shouldn't be taking any insulin since his appetite is low and is not eating very well. Hemoglobin A1c was over 12% on admission. Is on insulin drip and has improved - DKA (diabetic ketoacidoses) - resolved Continue sliding-scale insulin , give additional insulin today, adjust upwards, lantus to 14 units qhs Consistent carbohydrate diet IV hydration- with additional fluid bolus - T2 DM A1c was about 20% Continue sliding-scale insulin - Hyponatremia Sec to High BG levels improved Continue with normal saline - LORIE (acute kidney injury) Sec to ATN - resolving Continue with IV hydration - HTN (hypertension) Cont antihypertensives - Malnutrition Dietitian consult - HLD (hyperlipidemia) COnt statins - Metabolic ACIDOSIS Give additional amp of sodium bicarb peripheral neuropathy Cont Gabapentin - DVT prophylaxis On Lovenox and GI prophylaxis with Pepcid Pt is full code Plan discussed with the patient in detail History Interval history: Patient seen and examined this morning, no new complaints. Nursing staff reports low BP, Patient denies any dizziness, Hospitalist Physical - Physical exam Narrative exam: Constitutional: Well-nourished well-developed. In no distress, resting comfortable Head: Normocephalic atraumatic Eyes: Pupils are equal round and reactive to light Nose: No enlarged turbinates, no septal deviation. Mouth: Moist mucous membranes. Neck: Supple no thyromegaly. No bruit. No JVD Heart: Regular rate and rhythm, S1-S2 normal. No rubs murmurs or gallop Lungs: Clear to auscultation bilaterally. no rales or rhonchi Abdomen: Soft, nontender. Bowel sound are present. Extremities: No edema, no cyanosis, no clubbing. Neuro: Alert oriented Oriented x3. No focal sensory or motor deficit. Skin: No rashes or hyperpigmented spots Musculoskeletal system: No joint pain or swelling Hematological: No petechia or subcutanous hemorrhages. Immunological: No multiple septic spots on the skin Lymphatic: No generalized lymphadenopathy Psychiatry: Euthymic. Calm. - Constitutional Vitals: Temp Pulse Resp BP Pulse Ox 97.9 F 56 L 20 108/63 99 11/21/18 12:04 11/21/18 12:04 11/21/18 12:04 11/21/18 12:04 11/21/18 12:04 General appearance: Present: mild distress, well-nourished Results - Labs CBC & Chem 7: 11/21/18 08:40 11/21/18 08:40 Labs: Laboratory Last Values WBC 4.1 K/mm3 (4.5-11.0) L 11/21/18 08:40 RBC 3.87 M/mm3 (3.65-5.03) 11/21/18 08:40 Hgb 12.5 gm/dl (11.8-15.2) 11/21/18 08:40 Hct 38.0 % (35.5-45.6) 11/21/18 08:40 MCV 98 fl (84-94) H 11/21/18 08:40 MCH 32 pg (28-32) 11/21/18 08:40 MCHC 33 % (32-34) 11/21/18 08:40 RDW 14.5 % (13.2-15.2) 11/21/18 08:40 Plt Count 203 K/mm3 (140-440) 11/21/18 08:40 Lymph % (Auto) 37.9 % (13.4-35.0) H 11/21/18 08:40 [place] % (Auto) 4.9 % (0.0-7.3) 11/21/18 08:40 Eos % (Auto) 1.9 % (0.0-4.3) 11/21/18 08:40 Baso % (Auto) 0.5 % (0.0-1.8) 11/21/18 08:40 Lymph # 1.6 K/mm3 (1.2-5.4) 11/21/18 08:40 [place]ove # 0.2 K/mm3 (0.0-0.8) 11/21/18 08:40 Eos # 0.1 K/mm3 (0.0-0.4) 11/21/18 08:40 Baso # 0.0 K/mm3 (0.0-0.1) 11/21/18 08:40 Seg Neutrophils % 54.8 % (40.0-70.0) 11/21/18 08:40 Seg Neutrophils # 2.3 K/mm3 (1.8-7.7) 11/21/18 08:40 VBG pH 7.229 (7.320-7.420) L 11/18/18 11:03 Sodium 134 mmol/L (137-145) L 11/21/18 08:40 Potassium 5.5 mmol/L (3.6-5.0) H 11/21/18 08:40 Chloride 97.6 mmol/L (98-107) L 11/21/18 08:40 Carbon Dioxide 16 mmol/L (22-30) L 11/21/18 08:40 26 mmol/L 11/21/18 08:40 BUN 21 mg/dL (9-20) H 11/21/18 08:40 1.0 mg/dL (0.8-1.5) 11/21/18 08:40 Estimated GFR > 60 ml/min 11/21/18 08:40 21 % 11/21/18 08:40 Glucose 262 mg/dL (75-100) H 11/21/18 08:40 POC Glucose 324 (70-105) H 11/21/18 12:10 > 20.0 % (4-6) H 11/18/18 18:29 Calcium 8.8 mg/dL (8.4-10.2) 11/21/18 08:40 Phosphorus 2.20 mg/dL (2.5-4.5) L D 11/20/18 06:38 Magnesium 1.90 mg/dL (1.7-2.3) 11/20/18 06:38 0.40 mg/dL (0.1-1.2) 11/21/18 08:40 AST 34 units/L (5-40) 11/21/18 08:40 ALT 17 units/L (7-56) 11/21/18 08:40 121 units/L (35-129) 11/21/18 08:40 170 units/L (55-170) 11/18/18 11:03 CK-MB (CK-2) 2.7 ng/mL (0.0-4.0) 11/18/18 11:03 CK-MB (CK-2) Rel Index 1.5 (0-4) 11/18/18 11:03 < 0.010 ng/mL (0.00-0.029) 11/18/18 11:03 5.8 g/dL (6.3-8.2) L 11/21/18 08:40 3.1 g/dL (3.9-5) L 11/21/18 08:40 1.1 % 11/21/18 08:40 38 units/L (13-60) 11/18/18 11:03 Straw (Yellow) 11/18/18 11:59 Clear (Clear) 11/18/18 11:59 6.0 (5.0-7.0) 11/18/18 11:59 Ur Specific [place] 1.018 (1.003-1.030) 11/18/18 11:59 <15 mg/dl mg/dL (Negative) 11/18/18 11:59 >=500 mg/dL (Negative) 11/18/18 11:59 20 mg/dL (Negative) 11/18/18 11:59 Sm (Negative) 11/18/18 11:59 Neg (Negative) 11/18/18 11:59 Neg (Negative) 11/18/18 11:59 < 2.0 mg/dL (<2.0) 11/18/18 11:59 Ur Leukocyte Esterase Neg (Negative) 11/18/18 11:59 1.0 /HPF (0.0-6.0) 11/18/18 11:59 1.0 /HPF (0.0-6.0) 11/18/18 11:59 U Epithel Cells (Auto) < 1.0 /HPF (0-13.0) 11/18/18 11:59 31 mmol/L 11/18/18 Unknown 35.69 mmol/L 11/18/18 Unknown Active Medications - Current Medications Current Medications: Generic Name Dose Route Start Last Admin Trade Name Freq PRN Reason Stop Dose Admin Acetaminophen 650 mg 11/18/18 17:44 Tylenol PO Q4H PRN Pain MILD(1-3)/Fever >100.5/HAMMOND Atorvastatin Calcium 40 mg 11/19/18 22:00 11/20/18 21:44 Lipitor PO 40 mg QHS JAVON Administration Carvedilol 25 mg 11/18/18 22:00 11/21/18 11:25 Coreg PO Not Given BID JAVON Dextrose 50 ml 11/19/18 02:39 D50w (25gm) Syringe IV PRN PRN Hypoglycemia Famotidine 20 mg 11/20/18 22:00 11/21/18 11:27 Pepcid PO 20 mg BID JAVON Administration Gabapentin 300 mg 11/18/18 22:00 11/21/18 11:26 Neurontin PO 300 mg BID JAVON Administration Hydralazine HCl 10 mg 11/18/18 17:51 Apresoline IV Q3H PRN Blood Pressure Insulin Glargine 14 units 11/21/18 22:00 Lantus SUB-Q QHS JAVON Insulin Human Lispro 0 unit 11/19/18 07:30 11/21/18 13:18 Humalog SUB-Q 10 unit ACHS JAVON Administration Protocol Metoclopramide HCl 10 mg 11/18/18 17:44 Reglan IV Q6H PRN Nausea And Vomiting Morphine Sulfate 2 mg 11/18/18 17:44 Morphine IV Q4H PRN Pain, Moderate (4-6) Ondansetron HCl 4 mg 11/18/18 17:44 Zofran IV Q3H PRN Nausea And Vomiting Sodium Chloride 10 ml 11/18/18 22:00 11/21/18 11:28 Sodium Chloride Flush Syringe 10 Ml IV 10 ml BID JAVON Administration Sodium Chloride 10 ml 11/18/18 17:44 Sodium Chloride Flush Syringe 10 Ml IV PRN PRN LINE FLUSH Nutrition/Malnutrition Assess - Dietary Evaluation Nutrition/Malnutrition Findings: Nutrition Notes Start: 11/19/18 09:53 Freq: Status: Active Protocol: Document 11/19/18 09:53 LP (Rec: 11/19/18 10:08 LP [email or web address]) Nutrition Notes Need for Assessment generated from: MD Order Initial or Follow up Assessment Current Diagnosis Acute Kidney Injury,Diabetes, Hypertension Other Pertinent Diagnosis DKA Current Diet Renal Labs/Tests A1c >20 Pertinent Medications Reviewed Height 6 ft Weight 61.2 kg [place] Body Weight (kg) 80.90 BMI 18.3 Weight change and time frame 3.8% wt loss in a few weeks Subjective/Other Information Consult for diet education. Pt states wt loss. UBW 140lbs. Pt noted with clavical and temporal wasting. Burn Absent Trauma Absent Minimum of two criteria Yes Energy Intake (severe) < or equal to 50% Estimated Energy Requirement > or equal to 5 days Interpretation of Weight Loss (non- 1-2% in 1 week severe) Body Fat Depletion Mild depletion (non-severe) Muscle Mass Mild Depletion (non-severe) #2 Nutrition Diagnosis Food and nutrition-related knowledge deficit Etiology DM diet As Evidenced by Signs and Symptoms Pt with A1c <20 #1 Nutrition Diagnosis Malnutrition Etiology uncontrolled DM and poor appetite As Evidenced by Signs and Symptoms A1c >20, wt loss of 3.8% in a few weeks, temporal and clavical wasting. Is patient on ventilator? No Is Patient Ambulatory and/or Out of Bed Yes REE-([place]-St. Jeor-ambulatory/OOB) [ 1865.500 NUTR.[id number]] Kcal/Kg value to use for calculation 35 Approximate Energy Requirements Using 2142 kcal/Kg Calculation Used for Recommendations Kcal/kg Additional Notes Protein needs are 73-92g (1.2- 1.5g/kg) Fluid needs are 1ml/kcal Nutrition Intervention Change Diet Order: Renal consistent CHO Teaching Recipient Patient Learning Readiness Good Teaching Methods Discussion,Handout Response to Teaching Verbalize understanding Education Handouts Provided Consistent CHO Diet Barriers to Learning No Barriers RD phone number provided Yes Patient aware of follow up options Yes Goal #1 Meet at least 80% of kcal and protein needs Goal #2 Wt gain/maintenance Goal #3 BG control Anticipated Discharge Needs: Consistent CHO Follow-Up By: 11/22/18 Additional Comments Follow for intakes, BG levels, diet education questions.
[2018-11-21] MEDS ORDERED: LANTUS SUB-Q SCH (22:00)
[2018-11-22 08:35] LABS: Basophils % (Auto) 0.8 % (0.0-1.8); Eosinophils # (Auto) 0.1 K/mm3 (0.0-0.4); Eosinophils % (Auto) 1.7 % (0.0-4.3); Hematocrit 37.9 % (35.5-45.6); Hemoglobin 12.6 gm/dl (11.8-15.2); Lymphocytes # (Auto) 1.5 K/mm3 (1.2-5.4); Lymphocytes % (Auto) 39.3 % (13.4-35.0); Mean Corpuscular HGB Conc 33 % (32-34); Mean Corpuscular Volume 97 fl (84-94); Monocytes # (Auto) 0.3 K/mm3 (0.0-0.8); Monocytes % (Auto) 6.8 % (0.0-7.3); Platelet Count 211 K/mm3 (140-440); Red Blood Count 3.89 M/mm3 (3.65-5.03); Red Cell Distribution Width 13.9 % (13.2-15.2)
--- NOTE | 2018-11-22 08:43 | Discharge Summary ---
Providers - Providers Date of Admission: 11/18/18 12:22 Attending physician: CB MELVIN MD 11/18/18 12:11 Consult to Dietitian/Nutrition [CONS] Routine Physician Instructions: Reason For Exam: DKA Reason for Consult: Nutrition Recommendations Reason for Consult: Diet education 11/18/18 12:21 Consult to Physician [CONS] Urgent Comment: Dr. Massey notified @ 12:45- [facility] Consulting Provider: JOSUE MASSEY Physician Instructions: Reason For Exam: RENAL INSUF, DKA 11/18/18 17:46 Consult to Dietitian/Nutrition [CONS] Routine Physician Instructions: Reason For Exam: DKA Reason for Consult: Nutrition Recommendations Reason for Consult: Diet education Primary care physician: SUMAN GARCIA Hospitalization Reason for admission: DKA Condition: Stable Hospital course: 63-year-old male with a history of diabetes mellitus admitted to the emergency department for DKA have not been taken his insulin for the past 1 week because his things he shouldn't be taking any insulin since his appetite is low and is not eating very well. Hemoglobin A1c was over 12% on admission. Is on insulin drip and has improved - DKA (diabetic ketoacidoses) - resolved Continue sliding-scale insulin , counselling provided, discharged on appropriate conversion drug - T2 DM A1c was about 20% Continue sliding-scale insulin - Hyponatremia Sec to High BG levels improved Continue with normal saline - LORIE (acute kidney injury) Sec to ATN - resolving - HTN (hypertension) Cont antihypertensives - Malnutrition Dietitian consult - HLD (hyperlipidemia) COnt statins - Metabolic ACIDOSIS Give additional amp of sodium bicarb peripheral neuropathy Cont Gabapentin Disposition: - TO HOME OR SELFCARE Time spent for discharge: 35 mins Core Measure Documentation - Palliative Care Palliative Care/ Comfort Measures: Not Applicable - Core Measures Any of the following diagnoses?: none Exam - Physical Exam Narrative exam: Constitutional: Well-nourished well-developed. In no distress, resting comfortable Head: Normocephalic atraumatic Eyes: Pupils are equal round and reactive to light Nose: No enlarged turbinates, no septal deviation. Mouth: Moist mucous membranes. Neck: Supple no thyromegaly. No bruit. No JVD Heart: Regular rate and rhythm, S1-S2 normal. No rubs murmurs or gallop Lungs: Clear to auscultation bilaterally. no rales or rhonchi Abdomen: Soft, nontender. Bowel sound are present. Extremities: No edema, no cyanosis, no clubbing. Neuro: Alert oriented Oriented x3. No focal sensory or motor deficit. Skin: No rashes or hyperpigmented spots Musculoskeletal system: No joint pain or swelling Hematological: No petechia or subcutanous hemorrhages. Immunological: No multiple septic spots on the skin Lymphatic: No generalized lymphadenopathy Psychiatry: Euthymic. Calm. - Constitutional Vitals: Temp Pulse Resp BP Pulse Ox 98.5 F 58 L 20 119/65 100 11/22/18 05:17 11/22/18 05:17 11/22/18 05:17 11/22/18 05:17 11/22/18 05:17 Plan Activity: advance as tolerated, fall precautions Diet: diabetic, renal Special Instructions: record daily BP diary, record blood sugar diary Follow up with: SUMAN GARCIA MD [Primary Care Provider] - 7 Days LUKAS PRABHAKAR MD [Staff Physician] - 7 Days Prescriptions: Insulin Glargine [Lantus VIAL] 14 units SUB-Q QHS #30 units Insulin Regular, Human [HumuLIN R] 0 unit SQ AC #1 vial Other Discharge Orders: Glucometer (Amb) Location: None Selected Glucometer supplies[Amb] Location: None Selected
[2018-11-22 08:53] LABS: Alanine Aminotransferase 14 units/L (7-56); Albumin 3.1 g/dL (3.9-5); BUN/Creatinine Ratio 17; Blood Urea Nitrogen 15 mg/dL (9-20); Calcium 8.7 mg/dL (8.4-10.2); Hemolysis Index 0
[2018-11-22] MEDS: HumaLOG SUB-Q SCH ×2 (09:52→12:11)
[2018-11-22] MEDS: COREG PO SCH (09:56)
[2018-11-22] MEDS: NEURONTIN PO SCH (09:56)
[2018-11-22] MEDS: SODIUM CHLORIDE FLUSH SYRINGE 10 ML IV SCH (09:56)
[2018-11-22] MEDS: PEPCID PO SCH (09:56)
[2018-11-22 13:23] VITALS: BP 113/64
== END 2018-11-22 12:50 | disposition home or self-care (01) | DRG 637 ==
LOC: ED 09:43 → CC1 12:22 → 3A 11-19 11:18
PROVIDERS: ADMIT Internal Medicine; ATTEND Internal Medicine
DX: E11.10 Type 2 diabetes mellitus with ketoacidosis without coma (principal); N17.0 Acute kidney failure with tubular necrosis; E87.1 Hypo-osmolality and hyponatremia; E44.0 Moderate protein-calorie malnutrition; Z68.1 Body mass index [BMI] 19.9 or less, adult; I10 Essential (primary) hypertension; E78.5 Hyperlipidemia, unspecified; E78.2 Mixed hyperlipidemia; E11.42 Type 2 diabetes mellitus with diabetic polyneuropathy; E87.5 Hyperkalemia; Z87.891 Personal history of nicotine dependence; Z79.4 Long term (current) use of insulin
CPT/HCPCS: 36415; 80048; 80053; 81001; 82550; 82553; 82805; 82962; 83036; 83690; 83735; 84100; 84133; 84300; 84484; 85025; 93005; 93010; 94640; G0378; A9270-GY; J1815; J2405; J7030; J7042